=== PATIENT | female | born 1960 | race Caucasian/White ===

== ENCOUNTER → 2023-04-08 14:42 | Outpatient (CLI) | payer MEDICARE, MEDICAID, SELFPAY ==
--- NOTE | 2023-04-08 | DI.RAD.S_ITS ---
PROCEDURE: XR CHEST 2V INDICATIONS: Pneumonia, unspecified organism TECHNIQUE: 2 views of the chest were acquired. COMPARISON: [facility], , CHEST 2 VIEW, 05/24/2010, 15:30. FINDINGS: Surgical changes and devices: Right shoulder arthroplasty. Lungs and pleura: Lungs are clear. No pleural effusions or pneumothorax. Mediastinum: Mediastinal contours are normal. Heart size is normal. Bones and chest wall: No suspicious bony abnormalities. Soft tissues appear unremarkable. IMPRESSION: No acute cardiopulmonary disease process. Dictated by: Kandi Acosta MD, PhD on 04/08/2023 at 15:19 Approved by: Kandi Acosta MD, PhD on 04/08/2023 at 15:20
== END ==
PROVIDERS: Referring Provider Nurse Practitioner Family; Visit Provider Nurse Practitioner Family
DX: J18.9 Pneumonia, unspecified organism (principal)
CPT/HCPCS: 71046

== ENCOUNTER → 2023-04-15 14:50 | Outpatient (CLI) | payer MEDICARE, MEDICAID, SELFPAY ==
--- NOTE | 2023-04-15 | DI.RAD.S_ITS ---
PROCEDURE: XR LUMBAR SPINE 2-3V INDICATIONS: Radiculopathy, lumbar region, polyneuropathy TECHNIQUE: 3 views of the lumbar spine were acquired. COMPARISON: None. FINDINGS: Bones: 5 [id number] vertebrae are present. There is mild, approximately 4 millimeters of L4-L5 anterolisthesis secondary to facet hypertrophy. No vertebral body compression fractures. No suspicious bony lesions. Mild degenerative disc changes throughout the lumbar spine. Moderate L3-L4, L4-L5 and L5-S1 facet arthropathy. Mild L2-L3 and L1-L2 facet arthropathy. Soft tissues: Overlying bowel gas pattern is normal. No suspicious soft tissue calcifications. IMPRESSION: 1. Multilevel degenerative disc disease. 2. Multilevel facet arthropathy. 3. No fracture. No acute osseous lesion. If symptoms and/or clinical suspicion for pathology persists, evaluation with MRI should be considered for further assessment. Dictated by: Kandi Acosta MD, PhD on 04/15/2023 at 15:19 Approved by: Kandi Acosta MD, PhD on 04/15/2023 at 15:21
== END ==
PROVIDERS: Referring Provider Nurse Practitioner Family; Visit Provider Nurse Practitioner Family
DX: M51.16 Intervertebral disc disorders with radiculopathy, lumbar region (principal); M47.26 Other spondylosis with radiculopathy, lumbar region; M47.27 Other spondylosis with radiculopathy, lumbosacral region; G62.9 Polyneuropathy, unspecified
CPT/HCPCS: 72100

== ENCOUNTER → 2023-06-23 10:30 | Outpatient (CLI) | payer MEDICARE, MEDICAID, SELFPAY ==
--- NOTE | 2023-06-23 | DI.MRI.S_ITS ---
PROCEDURE: MR LUMBAR SPINE WO CON INDICATIONS: intervertebral disc degeneration, lumbar region TECHNIQUE: Noncontrast sagittal T1 spin echo and T2 fast echo, sagittal STIR, and T2 fast spin echo through the lumbar spine. In cases with scoliosis, additional coronal T2 fast spin echo may be performed. COMPARISON: [facility], CT, CHEST ABDOMEN WITH CONTRAST, 04/29/2008, 11:39. [facility], CR, XR LUMBAR SPINE 2-3V, 04/15/2023, 14:59. FINDINGS: Image quality: Excellent. Alignment and Curvature: There is minimal levoconvex lumbar scoliotic curvature. Accentuated lumbar lordosis is seen. Minimal retrolisthesis can be seen at T12-L1, L1-L2, and L2-L3. There is minimal L4-L5 anterolisthesis seen. Bone Marrow: Marrow is of normal overall signal. No acute vertebral body compression fractures. Spinal Cord: Conus medullaris terminates at the L1 level. Visualized cord demonstrates normal signal and size. Paraspinous Soft Tissues: No paravertebral masses. T12-L1: The disc height and disk signal are relatively well-preserved. Mild generalized disc bulge is seen. There is mild left-sided and minimal right-sided neural foraminal narrowing. Minimal central canal narrowing is seen. L1-L2: Normal appearance. L2-L3: The disc height and disk signal are relatively well-preserved. Mild to moderate disc bulge is seen, which is eccentric to the left. Mild to moderate facet hypertrophy is seen. There is [id number] left-sided and minimal right-sided neural foraminal narrowing. Minimal central canal narrowing is seen. L3-L4: The disc height and disk signal are relatively well-preserved. Mild generalized disc bulge is seen. There is at least moderate right-sided and moderate left-sided facet hypertrophy. There is moderate right-sided and mild left-sided neural foraminal narrowing. Mild central canal narrowing is seen. L4-L5: The disc height and disk signal are relatively well-preserved. Mild to moderate disc bulge is seen, which is eccentric to the right. Prominent facet hypertrophy is seen. Minimal to mild bilateral neural foraminal narrowing is seen. Minimal central canal narrowing is seen. L5-S1: The disc height and disk signal are well-preserved. Minimal disc bulge is seen. At least moderate facet hypertrophy can be seen. No significant neural foraminal or central canal narrowing can be seen. IMPRESSION: Multiple levels of lumbar spine degenerative change can be seen, which are overall worst at L3-L4 and L4-L5. Minimal levoconvex lumbar scoliotic curvature. Dictated by: Audi Briscoe M.D. on 06/23/2023 at 11:02 Approved by: Audi Briscoe M.D. on 06/23/2023 at 11:07
== END ==
PROVIDERS: Referring Provider Nurse Practitioner Family; Visit Provider Nurse Practitioner Family
DX: M51.36 Other intervertebral disc degeneration, lumbar region (principal); M47.816 Spondylosis without myelopathy or radiculopathy, lumbar region; M47.817 Spondylosis without myelopathy or radiculopathy, lumbosacral region
CPT/HCPCS: 72148

== ENCOUNTER → 2023-09-05 13:53 | Outpatient (CLI) | payer MEDICARE, MEDICAID, SELFPAY ==
--- NOTE | 2023-09-05 14:00 | DI.RAD.S_ITS ---
PROCEDURE: XR CHEST 2V INDICATIONS: pnemonia TECHNIQUE: 2 views of the chest were acquired. COMPARISON: [facility], CR, XR CHEST 2V, 04/08/2023, 14:56. FINDINGS: Surgical changes and devices: Right shoulder arthroplasty Lungs and pleura: Lungs are clear. No pleural effusions or pneumothorax. Mediastinum: Mediastinal contours are normal. Heart size is normal. Bones and chest wall: No suspicious bony abnormalities. Soft tissues appear unremarkable. IMPRESSION: No acute cardiopulmonary abnormality is seen. Dictated by: Dorian Marroquin M.D. on 09/05/2023 at 15:42 Approved by: Dorian Marroquin M.D. on 09/05/2023 at 15:43
[2023-09-05 15:37] LABS: Basophils Absolute Auto 100 /uL (0-100); Basophils Percent Auto 0.7 % (0-2); Eosinophils Absolute Auto 400 /uL (0-450); Eosinophils Percent Auto 2.2 % (2-4); Hematocrit 26.2 % (36-46); Hemoglobin 7.7 g/dL (12.0-16.0); Lymphocytes Absolute Auto 1900 /uL (1100-4500); Lymphocytes Percent Auto 11.5 % (25-40); Mean Corpuscular HGB Conc 29.2 % (30-36); Mean Corpuscular Hemoglobin 20.1 PG (26-34); Mean Corpuscular Volume 68.7 fL (80-100); Monocytes Absolute Auto 1800 /uL (0-900); Monocytes Percent Auto 10.5 % (3-14); Neutrophils Absolute Auto 12600 /uL (1500-7000); Neutrophils Percent Auto 75.1 % (50-75); Platelet Count 403 X10^3/uL (150-400); Red Blood Cell Count 3.81 X10^6/uL (4.0-5.2); Red Cell Distribution Width 19.5 % (11.6-14.8); White Blood Cell Count 16.8 X10^3/uL (4.5-11.0)
[2023-09-05 15:38] LABS: Add Manual Diff / Slide Review SLIDE REVIEW
[2023-09-05 16:07] LABS: BUN Creatinine Ratio 16.5 (6-22); Blood Urea Nitrogen 14 mg/dL (7-17); Calcium 9.3 mg/dL (8.4-10.2); Carbon Dioxide 24 mmol/L (22-32); Chloride 104 mmol/L (98-107); Estimated Glomerular Filt Rate > 60 mL/min (>60); Glucose 114 mg/dL (80-110); HEMOLYSIS < 15 (0-50); Potassium 4.4 mmol/L (3.4-5.1); Sodium 137 mmol/L (137-145)
[2023-09-05 16:20] LABS: Anisocytosis 1+; Microcytosis 2+
[2023-09-05 16:21] LABS: Hypochromasia 1+
[2023-09-05 16:22] LABS: Ovalocytes 1+; Poikilocytosis 1+
== END ==
PROVIDERS: PCP Internal Medicine; Referring Provider Internal Medicine; Visit Provider Internal Medicine
DX: I10 Essential (primary) hypertension (principal); J18.9 Pneumonia, unspecified organism
CPT/HCPCS: 36415; 71046; 80048; 85025

== ENCOUNTER → 2024-07-13 11:03 | Outpatient (CLI) | payer MEDICARE, MEDICAID, SELFPAY ==
--- NOTE | 2024-07-13 | DI.RAD.S_ITS ---
PROCEDURE: XR CHEST 2V INDICATIONS: acute cough TECHNIQUE: 2 views of the chest were acquired. COMPARISON: [facility], CR, XR CHEST 2V, 09/05/2023, 14:05. [facility], CR, XR CHEST 2V, 04/08/2023, 14:56. FINDINGS: Surgical changes and devices: Right humeral head prosthesis. Lungs and pleura: Prominent pulmonary markings. No consolidation is identified. No pleural effusions or pneumothorax. Mediastinum: Mediastinal contours are normal. Heart size is prominent. Bones and chest wall: No suspicious bony abnormalities. Soft tissues appear unremarkable. IMPRESSION: Prominent pulmonary markings. This could be artifactual due to overlying breast tissue, pulmonary vasculature engorgement, or atypical pneumonia. Dictated by: Baldo Gunderson M.D. on 07/13/2024 at 15:35 Approved by: Baldo Gunderson M.D. on 07/13/2024 at 15:37
== END ==
PROVIDERS: PCP Internal Medicine; Referring Provider Registered Nurse Critical Care Medicine; Visit Provider Registered Nurse Critical Care Medicine
DX: R05.1 Acute cough (principal)
CPT/HCPCS: 71046

== ENCOUNTER 2024-07-14 15:31 | Inpatient (IN) | payer MEDICARE, MEDICAID, SELFPAY ==
[2024-07-14] VITALS (10 sets, daily range): BP systolic 107–128; BP diastolic 54–63; PULSE 93–102; RESP 19–28; TEMP 36.8–37.2; O2SAT 85–99; BMI 35.8
--- NOTE | 2024-07-14 15:45 | DI.RAD.S_ITS ---
PROCEDURE: XR CHEST 1V INDICATIONS: Shortness of breath TECHNIQUE: One view of the chest was acquired. COMPARISON: [facility], CR, XR CHEST 2V, 07/13/2024, 11:09. [facility], CR, XR CHEST 2V, 09/05/2023, 14:05. FINDINGS: Surgical changes and devices: None. Lungs and pleura: Low lung volumes. No dense consolidation or pleural effusions. Possible basal atelectasis/scarring Mediastinum: Cardiomegaly. Unchanged cardiomediastinal contours. Bones and chest wall: Degenerative changes IMPRESSION: Low lung volumes. No acute radiographic abnormality on this limited single view study. Possible basal atelectasis/scarring. Dictated by: Brayden Chawla M.D. on 07/14/2024 at 17:00 Approved by: Brayden Chawla M.D. on 07/14/2024 at 17:01
--- NOTE | 2024-07-14 15:45 | EKG_ITS ---
[address] [address] Test Date: 2024-07-14 Pat Name: Rosmery Marie Department: Room: Gender: Female [employer] Helper: RADHA : 1960 Requested By: Order Number: [id number] Reading MD: Peewee Bartholomew MD Measurements Intervals [place] Rate: 97 P: 31 SD: 146 QRS: 11 QRSD: 76 T: 34 QT: 320 QTc: 406 Interpretive Statements Sinus rhythm with premature atrial complexes Low voltage QRS Electronically Signed On 07-15-2024 7:30:54 PST by Peewee Bartholomew MD
[2024-07-14 15:58] LABS: INR 1.2 (0.9-1.3)
[2024-07-14 16:00] LABS: Basophils Absolute Auto 0 /uL (0-100); Basophils Percent Auto 0.4 % (0-2); Eosinophils Absolute Auto 300 /uL (0-450); Eosinophils Percent Auto 2.6 % (2-4); Hematocrit 29.4 % (36-46); Hemoglobin 8.8 g/dL (12.0-16.0); Lymphocytes Absolute Auto 1900 /uL (1100-4500); Lymphocytes Percent Auto 15.2 % (25-40); Mean Corpuscular Hemoglobin 23.9 PG (26-34); Mean Corpuscular Volume 79.7 fL (80-100); Monocytes Absolute Auto 1700 /uL (0-900); Monocytes Percent Auto 13.5 % (3-14); Neutrophils Absolute Auto 8500 /uL (1500-7000); Neutrophils Percent Auto 68.3 % (50-75); Platelet Count 494 X10^3/uL (150-400); Red Blood Cell Count 3.69 X10^6/uL (4.0-5.2); Red Cell Distribution Width 32.1 % (11.6-14.8); White Blood Cell Count 12.4 X10^3/uL (4.5-11.0)
[2024-07-14 16:02] LABS: Alanine Aminotransferase 14 IU/L (<35); Albumin 3.5 g/dL (3.5-5.0); Albumin Globulin Ratio 1.3 (1.0-2.8); Alkaline Phosphatase 96 U/L (38-126); Aspartate Aminotransferase 44 IU/L (14-36); BUN Creatinine Ratio 16.4 (6-22); Bilirubin Total 0.3 mg/dL (0.2-1.3); Blood Urea Nitrogen 12 mg/dL (7-17); Calcium 8.6 mg/dL (8.4-10.2); Carbon Dioxide 27 mmol/L (22-32); Chloride 103 mmol/L (98-107); Estimated Glomerular Filt Rate > 60 mL/min (>60); Globulin 2.8 g/dL (1.7-4.1); Glucose 164 mg/dL (80-110); HEMOLYSIS 21 (0-50); Lactate (Lactic Acid) 1.1 mmol/L (0.7-2.1); Potassium 3.9 mmol/L (3.4-5.1); Sodium 136 mmol/L (137-145); Total Protein 6.3 g/dL (6.3-8.2)
--- NOTE | 2024-07-14 16:06 | ED.SOB ---
HPI - SOB/Dyspnea General Chief Complaint: Shortness of Breath/Dyspnea Stated Complaint: SOB/hypoxia Time Seen by Provider: 07/14/24 15:36 History of Present Illness HPI Narrative: Patient brought in by ambulance from detention for evaluation for pneumonia. Patient outpatient x-ray yesterday showed prominent pulmonary markings possible atypical pneumonia versus vasculature engorgement. Patient was prescribed antibiotics but they were not started. Raspy cough for 1 week. 84% room air by EMS. Improved with nasal cannula. Patient is awake alert oriented self and date of . She is DNR with selective treatments. DuoNeb treatment given by EMS and has helped patient. Related Data Home Medications Medication Instructions Recorded Confirmed ASPIRIN (#ASPIR-MIN) 325 mg PO Q DAY ##0 06/12/12 07/15/24 CALCIUM CARBONATE (OYSTER SHELL 500 mg PO BID ##0 06/12/12 07/14/24 CALCIUM~) CHOLECALCIFEROL (VITAMIN D) 2,000 iu PO Q DAY ##0 06/12/12 07/14/24 acetaminophen 500 mg tablet 1,000 mg PO Q6HP ##0 06/12/12 07/14/24 (Tylenol Extra Strength) amitriptyline 100 mg tablet 50 mg PO HS ##0 06/12/12 07/14/24 lansoprazole 30 mg capsule,delayed 60 mg PO QDAY ##0 06/12/12 07/14/24 release risperidone 1 mg tablet (Risperdal) 3 mg PO BEDTIME ##0 06/12/12 07/14/24 topiramate 100 mg tablet (Topamax) 100 mg PO Q DAY ##0 06/12/12 07/14/24 Lactobacillus acidophilus 1 tab PO DAILY 07/14/24 07/14/24 Wellbutrin SR 100 mg PO BID 07/14/24 07/14/24 atorvastatin 80 mg tablet 80 mg PO DAILY 07/14/24 07/14/24 bisacodyl 10 mg rectal suppository 10 mg MA PRN PRN Constipation 07/14/24 07/14/24 clopidogrel 75 mg tablet 75 mg PO DAILY 07/14/24 07/14/24 docusate calcium 240 mg capsule 240 mg PO PRN PRN contsipation 07/14/24 07/14/24 folic acid 1 mg tablet 1 mg PO DAILY 07/14/24 07/14/24 furosemide 20 mg tablet 20 mg PO DAILY 07/14/24 07/14/24 gabapentin 100 mg capsule 100 mg PO 3XD 07/14/24 07/14/24 ipratropium 0.5 mg-albuterol 3 mg 3 ml inhalation DAILY 07/14/24 07/14/24 (2.5 mg base)/3 mL nebulization soln lactulose 20 gram/30 mL oral 30 ml PO DAILY 07/14/24 07/14/24 solution pantoprazole 40 mg tablet,delayed 40 mg PO DAILY 07/14/24 07/14/24 release polyethylene glycol 3350 17 17 g PO PRN PRN Constipation 07/14/24 07/14/24 gram/dose oral powder (Miralax) Previous Rx's Medication Instructions Recorded ferrous sulfate 325 mg (65 mg 325 mg PO DAILY #30 tabs 07/19/24 iron) tablet guaifenesin 100 mg/5 mL oral liquid 200 mg (10 mL) PO Q6HR PRN Cough 07/19/24 #473 mL guaifenesin 600 mg tablet, 600 mg PO BID 7 days #14 tabs 07/19/24 extended release 12 hr (Mucus Relief ER) oxycodone-acetaminophen 10 mg-325 1 tab PO Q6H PRN pain 7 days #30 07/19/24 mg tablet tabs Allergies Allergy/AdvReac Type Severity Reaction Status Date / Time iodine [IODINE] Allergy Mild Verified 07/14/24 15:47 aspirin [ASPIRIN] Allergy Unknown Verified 07/14/24 15:47 ibuprofen [IBUPROFEN] Allergy Unknown Verified 07/14/24 15:47 Penicillins [PENICILLINS] Allergy Unknown Verified 07/14/24 15:47 Review of Systems Review of Systems Narrative: GENERAL: Negative chills, fatigue, malaise, fever, sweats. HEENT: Negative sinus pain, ear pain, sore throat RESPIRATORY: Positive dyspnea, cough CARDIOVASCULAR: Negative chest pain, palpitations GASTROINTESTINAL: Negative nausea, vomiting, abdominal pain : Negative dysuria, frequency, hematuria MUSCULOSKELETAL: Negative muscle or bony pain SKIN: Negative rash, skin lesions NEUROLOGIC: Negative weakness, numbness ROS Unobtainable: All systems reviewed & are unremarkable except as noted in HPI and below Patient History Social History household members: none Smoking Status: Never smoker alcohol intake: current Exam Narrative Exam Narrative: GENERAL: in no distress, not toxic not dyspneic HEAD: Normocephalic. EYES: Pupils equal round ENT: Mucous membranes moist. NECK: Trachea midline. CARDIOVASCULAR: Regular rate and rhythm RESPIRATORY: Patient is able to speak near full sentences. coarse lung sounds bilaterally with rhonchi and wheezing. GASTROINTESTINAL: Abdomen soft, non-tender EXTREMITIES: No gross deformities. BACK: No flank tenderness. NEURO: Patient is awake alert oriented x3. Clear speech SKIN: Warm and dry PSYCH: Not anxious, is cooperative Initial Vital Signs Initial Vital Signs: Vital Signs Pulse Rate 96 H 07/14/24 15:35 Pulse Oximetry 98 07/14/24 15:35 Oxygen Delivery Method Aerosol Mask 07/14/24 15:35 Course Orders Ordered: Discontinued Medications Acetaminophen (Acetaminophen 325 Mg Tablet) 650 mg PO Q6H PRN PRN Reason: Fever/Mild Pain (1-3) Last Admin: 07/14/24 20:07 Dose: 650 mg Documented By: Albuterol/Ipratropium (Albuterol/Ipratropium 3 Ml Ampul) 3 ml INH DAILY [facility] Last Admin: 07/19/24 09:09 Dose: Not Given Documented By: Admin: 07/18/24 09:16 Dose: Not Given Documented By: Admin: 07/17/24 09:46 Dose: 3 ml Documented By: Admin: 07/16/24 08:00 Dose: 3 ml Documented By: Admin: 07/15/24 12:23 Dose: Not Given Documented By: VERO Amitriptyline HCl (Amitriptyline 25 Mg Tablet) 50 mg PO BEDTIME [facility] Last Admin: 07/18/24 20:13 Dose: 50 mg Documented By: Admin: 07/17/24 20:09 Dose: 50 mg Documented By: Admin: 07/16/24 19:53 Dose: 50 mg Documented By: Admin: 07/15/24 20:14 Dose: 50 mg Documented By: Admin: 07/14/24 21:19 Dose: 50 mg Documented By: Atorvastatin Calcium (Atorvastatin 20 Mg Tablet) 80 mg PO DAILY [facility] Last Admin: 07/19/24 08:40 Dose: 80 mg Documented By: Admin: 07/18/24 08:25 Dose: 80 mg Documented By: Admin: 07/17/24 08:27 Dose: 80 mg Documented By: Admin: 07/16/24 08:00 Dose: 80 mg Documented By: Admin: 07/15/24 12:23 Dose: 80 mg Documented By: VERO Benzonatate (Benzonatate 100 Mg Capsule) 100 mg PO Q4H PRN PRN Reason: Cough Last Admin: 07/17/24 02:06 Dose: 100 mg Documented By: Admin: 07/16/24 19:54 Dose: 100 mg Documented By: Admin: 07/16/24 00:21 Dose: 100 mg Documented By: Admin: 07/15/24 17:48 Dose: 100 mg Documented By: Admin: 07/15/24 08:25 Dose: 100 mg Documented By: Admin: 07/15/24 04:12 Dose: 100 mg Documented By: Admin: 07/14/24 23:19 Dose: 100 mg Documented By: Bupropion HCl (Bupropion Sr 100 Mg Tab) 100 mg PO BID [facility] Admin: 07/19/24 08:40 Dose: 100 mg Documented By: Admin: 07/18/24 20:13 Dose: 100 mg Documented By: Admin: 07/18/24 08:23 Dose: 100 mg Documented By: Admin: 07/17/24 20:09 Dose: 100 mg Documented By: Admin: 07/17/24 08:26 Dose: 100 mg Documented By: Admin: 07/16/24 19:54 Dose: 100 mg Documented By: Admin: 07/16/24 08:01 Dose: 100 mg Documented By: Admin: 07/15/24 20:13 Dose: 100 mg Documented By: Admin: 07/15/24 08:25 Dose: 100 mg Documented By: Admin: 07/14/24 21:18 Dose: 100 mg Documented By: Calcium Carbonate (Calcium Carbonate 500 Mg Tab) 500 mg PO BID [facility] Admin: 07/19/24 08:40 Dose: 500 mg Documented By: Admin: 07/18/24 20:13 Dose: 500 mg Documented By: Admin: 07/18/24 08:24 Dose: 500 mg Documented By: Admin: 07/17/24 20:10 Dose: Not Given Documented By: Admin: 07/17/24 08:28 Dose: 500 mg Documented By: Admin: 07/16/24 21:35 Dose: Not Given Documented By: Admin: 07/16/24 08:18 Dose: Not Given Documented By: Admin: 07/15/24 20:13 Dose: 500 mg Documented By: VITALIY Clopidogrel Bisulfate (Clopidogrel 75 Mg Tablet) 75 mg PO DAILY [facility] Last Admin: 07/19/24 08:40 Dose: 75 mg Documented By: Admin: 07/18/24 08:23 Dose: 75 mg Documented By: Admin: 07/17/24 08:28 Dose: 75 mg Documented By: Admin: 07/16/24 08:01 Dose: 75 mg Documented By: Admin: 07/15/24 12:22 Dose: 75 mg Documented By: VERO Docusate Sodium (Docusate 100 Mg Capsule) 100 mg PO BID PRN PRN Reason: contsipation Doxycycline Hyclate (Doxycycline Hyclate 100 Mg Tablet) 100 mg PO BID [facility] Stop: 07/19/24 09:01 Last Admin: 07/19/24 08:39 Dose: 100 mg Documented By: Admin: 07/18/24 20:13 Dose: 100 mg Documented By: Admin: 07/18/24 08:24 Dose: 100 mg Documented By: Admin: 07/17/24 20:09 Dose: 100 mg Documented By: Admin: 07/17/24 08:28 Dose: 100 mg Documented By: LEONARDO Ferrous Sulfate (Ferrous Sulfate 325 Mg Tablet) 325 mg PO DAILY [facility] Last Admin: 07/19/24 08:40 Dose: 325 mg Documented By: Admin: 07/18/24 08:24 Dose: 325 mg Documented By: Admin: 07/17/24 08:28 Dose: 325 mg Documented By: LEONARDO Folic Acid (Folic Acid 1 Mg Tablet) 1 mg PO DAILY [facility] Last Admin: 07/19/24 08:39 Dose: 1 mg Documented By: Admin: 07/18/24 08:24 Dose: 1 mg Documented By: Admin: 07/17/24 08:28 Dose: 1 mg Documented By: Admin: 07/16/24 08:02 Dose: 1 mg Documented By: Admin: 07/15/24 12:23 Dose: 1 mg Documented By: VERO Furosemide (Furosemide 20 Mg Tablet) 20 mg PO DAILY [facility] Last Admin: 07/19/24 08:40 Dose: 20 mg Documented By: Admin: 07/18/24 08:24 Dose: 20 mg Documented By: Admin: 07/17/24 08:28 Dose: 20 mg Documented By: Admin: 07/16/24 08:02 Dose: 20 mg Documented By: Admin: 07/15/24 12:23 Dose: Not Given Documented By: VERO Gabapentin (Gabapentin 100 Mg Capsule) 100 mg PO TID [facility] Last Admin: 07/19/24 08:39 Dose: 100 mg Documented By: Admin: 07/18/24 20:14 Dose: 100 mg Documented By: Admin: 07/18/24 15:16 Dose: 100 mg Documented By: Admin: 07/18/24 08:24 Dose: 100 mg Documented By: Admin: 07/17/24 20:09 Dose: 100 mg Documented By: Admin: 07/17/24 14:57 Dose: 100 mg Documented By: Admin: 07/17/24 08:27 Dose: 100 mg Documented By: Admin: 07/16/24 19:55 Dose: 100 mg Documented By: Admin: 07/16/24 14:44 Dose: 100 mg Documented By: Admin: 07/16/24 08:01 Dose: 100 mg Documented By: Admin: 07/15/24 20:14 Dose: 100 mg Documented By: Admin: 07/15/24 14:09 Dose: 100 mg Documented By: Admin: 07/15/24 08:25 Dose: 100 mg Documented By: Admin: 07/14/24 21:19 Dose: 100 mg Documented By: MD Koehlerfenesin (Guaifenesin Er 600 Mg Tab) 600 mg PO BID [facility] Admin: 07/19/24 08:39 Dose: 600 mg Documented By: Admin: 07/18/24 20:13 Dose: 600 mg Documented By: Admin: 07/18/24 08:23 Dose: 600 mg Documented By: Admin: 07/17/24 20:09 Dose: 600 mg Documented By: Admin: 07/17/24 08:27 Dose: 600 mg Documented By: Admin: 07/16/24 19:54 Dose: 600 mg Documented By: Admin: 07/16/24 08:01 Dose: 600 mg Documented By: Admin: 07/15/24 20:14 Dose: 600 mg Documented By: Admin: 07/15/24 08:25 Dose: 600 mg Documented By: Admin: 07/14/24 23:19 Dose: 600 mg Documented By: Guaifenesin (Guaifenesin Solution 100 Mg/5 Ml Udc) 200 mg PO Q6HR PRN PRN Reason: Cough Last Admin: 07/19/24 01:40 Dose: 200 mg Documented By: Admin: 07/18/24 17:41 Dose: 200 mg Documented By: Admin: 07/18/24 10:42 Dose: 200 mg Documented By: Admin: 07/18/24 04:08 Dose: 200 mg Documented By: Admin: 07/17/24 20:08 Dose: 200 mg Documented By: Admin: 07/17/24 14:57 Dose: 200 mg Documented By: Admin: 07/17/24 06:16 Dose: 200 mg Documented By: VITALIY Heparin Sodium (Porcine) (Heparin 5,000 Unit/Ml Vial) 5,000 unit SUBCUT BID [facility] Last Admin: 07/19/24 08:40 Dose: 5,000 unit Documented By: Admin: 07/18/24 20:13 Dose: 5,000 unit Documented By: Admin: 07/18/24 08:24 Dose: 5,000 unit Documented By: Admin: 07/17/24 20:09 Dose: 5,000 unit Documented By: Admin: 07/17/24 08:27 Dose: 5,000 unit Documented By: Admin: 07/16/24 19:54 Dose: 5,000 unit Documented By: Admin: 07/16/24 08:01 Dose: 5,000 unit Documented By: Admin: 07/15/24 20:13 Dose: 5,000 unit Documented By: Admin: 07/15/24 08:25 Dose: 5,000 unit Documented By: Admin: 07/14/24 20:06 Dose: 5,000 unit Documented By: Doxycycline Hyclate 100 mg/ (Sodium Chloride) 100 mls @ 100 mls/hr IV NOW ONE Stop: 07/14/24 15:47 Last Admin: 07/14/24 15:50 Dose: Not Given Documented By: MARIE Ceftriaxone Sodium 2,000 mg/ (Sodium Chloride) 100 mls @ 200 mls/hr IV NOW ONE Stop: 07/14/24 15:47 Last Admin: 07/14/24 15:50 Dose: Not Given Documented By: CTS Levofloxacin (Levaquin) 750 mg in 150 mls @ 100 mls/hr IV NOW ONE Stop: 07/14/24 17:18 Last Infusion: 07/14/24 17:26 Dose: 100 mls/hr Documented By: Admin: 07/14/24 16:24 Dose: 100 mls/hr Documented By: KLAUS Sodium Chloride (Normal Saline 0.45%) 1,000 mls @ 100 mls/hr IV CONT [facility] Last Admin: 07/15/24 04:37 Dose: 100 mls/hr Documented By: Infusion: 07/15/24 04:00 Dose: Infused Documented By: Admin: 07/14/24 18:00 Dose: 100 mls/hr Documented By: ELOISE Doxycycline Hyclate 100 mg/ (Sodium Chloride) 100 mls @ 100 mls/hr IV Q12H [facility] Last Admin: 07/16/24 16:41 Dose: 100 mls/hr Documented By: Infusion: 07/16/24 05:30 Dose: Infused Documented By: Admin: 07/16/24 04:27 Dose: 100 mls/hr Documented By: Infusion: 07/15/24 16:55 Dose: Infused Documented By: Admin: 07/15/24 15:52 Dose: 100 mls/hr Documented By: Infusion: 07/15/24 06:20 Dose: Infused Documented By: Admin: 07/15/24 05:19 Dose: 100 mls/hr Documented By: Infusion: 07/14/24 19:05 Dose: Infused Documented By: Admin: 07/14/24 18:04 Dose: 100 mls/hr Documented By: ELOISE Levofloxacin (Levaquin) 750 mg in 150 mls @ 100 mls/hr IV Q24H [facility] Last Infusion: 07/16/24 16:35 Dose: Infused Documented By: Admin: 07/16/24 14:44 Dose: 100 mls/hr Documented By: Infusion: 07/15/24 15:40 Dose: Infused Documented By: Admin: 07/15/24 14:09 Dose: 100 mls/hr Documented By: VERO Lactobacillus Acidophilus (Lactobacillus Acidophilus Tablet) 1 each PO DAILY [facility] Last Admin: 07/19/24 08:39 Dose: 1 each Documented By: Admin: 07/18/24 08:24 Dose: 1 each Documented By: Admin: 07/17/24 08:27 Dose: 1 each Documented By: Admin: 07/16/24 08:08 Dose: 1 each Documented By: FELIPE Lactulose (Lactulose 20 Gm/30 Ml Solution) 20 gm PO DAILY [facility] Last Admin: 07/19/24 08:41 Dose: 20 gm Documented By: Admin: 07/18/24 08:24 Dose: 20 gm Documented By: Admin: 07/17/24 08:28 Dose: 20 gm Documented By: Admin: 07/16/24 08:08 Dose: 20 gm Documented By: FELIPE Levofloxacin (Levofloxacin 250 Mg Tablet) 750 mg PO DAILY@1500 [facility] Stop: 07/18/24 15:01 Last Admin: 07/18/24 15:16 Dose: 750 mg Documented By: Admin: 07/17/24 14:57 Dose: 750 mg Documented By: LEONARDO Naloxone HCl (Naloxone 0.4 Mg/Ml Vial) 0.2 mg IV Q2MIN PRN PRN Reason: Opiate Reversal Non-Formulary Medication (Oxycodone-Acetaminophen) 1 tab PO PRN PRN PRN Reason: Pain (Scale Score 4-6) Ondansetron HCl (Ondansetron 4 Mg/2 Ml Inj) 4 mg IV Q8HR PRN PRN Reason: Nausea And Vomiting Oxycodone HCl (Oxycodone Ir 10 Mg Tablet) 10 mg PO Q6HR PRN PRN Reason: Pain, Severe (7-10) Last Admin: 07/19/24 08:45 Dose: 10 mg Documented By: Admin: 07/18/24 20:53 Dose: 10 mg Documented By: Admin: 07/18/24 15:23 Dose: 10 mg Documented By: Admin: 07/18/24 08:38 Dose: 10 mg Documented By: Admin: 07/17/24 20:09 Dose: 10 mg Documented By: Admin: 07/17/24 13:45 Dose: 10 mg Documented By: Admin: 07/16/24 19:53 Dose: 10 mg Documented By: Admin: 07/15/24 20:15 Dose: 10 mg Documented By: Admin: 07/15/24 13:47 Dose: 10 mg Documented By: Admin: 07/15/24 10:23 Dose: 10 mg Documented By: Admin: 07/15/24 04:12 Dose: 10 mg Documented By: Oxycodone/Acetaminophen (Oxycodone/Acetaminophen 5/325 Tablet) 1 tab PO Q6HR PRN PRN Reason: Pain, Moderate (4-6) Last Admin: 07/14/24 23:19 Dose: 1 tab Documented By: Pantoprazole Sodium (Pantoprazole Dr 40 Mg Tablet) 40 mg PO DAILY [facility] Last Admin: 07/19/24 08:40 Dose: 40 mg Documented By: Admin: 07/18/24 08:24 Dose: 40 mg Documented By: Admin: 07/17/24 08:26 Dose: 40 mg Documented By: Admin: 07/16/24 08:01 Dose: 40 mg Documented By: Admin: 07/15/24 12:22 Dose: 40 mg Documented By: VERO Potassium Chloride (Potassium Chloride 20 Meq Tab) 40 meq PO NOW ONE Stop: 07/18/24 08:01 Last Admin: 07/18/24 08:24 Dose: 40 meq Documented By: VALORIE Risperidone (Risperidone 1 Mg Tablet) 3 mg PO BEDTIME [facility] Last Admin: 07/18/24 20:13 Dose: 3 mg Documented By: Admin: 07/17/24 20:09 Dose: 3 mg Documented By: Admin: 07/16/24 19:53 Dose: 3 mg Documented By: Admin: 07/15/24 20:14 Dose: 3 mg Documented By: Admin: 07/14/24 21:19 Dose: 3 mg Documented By: Topiramate (Topiramate 100 Mg Tablet) 100 mg PO DAILY [facility] Last Admin: 07/19/24 08:40 Dose: 100 mg Documented By: Admin: 07/18/24 08:24 Dose: 100 mg Documented By: Admin: 07/17/24 08:28 Dose: 100 mg Documented By: Admin: 07/16/24 08:08 Dose: 100 mg Documented By: FELIPE Vitamin D (Cholecalciferol (Vitamin D3) 1,000 Unit Tablet) 2,000 unit PO DAILY [facility] Last Admin: 07/19/24 08:39 Dose: 2,000 unit Documented By: Admin: 07/18/24 08:23 Dose: 2,000 unit Documented By: Admin: 07/17/24 08:26 Dose: 2,000 unit Documented By: Admin: 07/16/24 08:08 Dose: 2,000 unit Documented By: FELIPE Vital Signs Vital signs: Vital Signs - 8 hr 07/14/24 15:35 07/14/24 15:36 07/14/24 15:36 Temperature Pulse Rate 96 H 98 H Respiratory Rate Blood Pressure 123/63 Pulse Oximetry 98 97 Oxygen Delivery Method Aerosol Mask Aerosol Mask Oxygen Flow Rate 07/14/24 15:40 07/14/24 15:40 07/14/24 15:40 Temperature 98.3 F Pulse Rate 93 H 95 H Respiratory Rate 28 H 20 Blood Pressure 123/63 127/61 Pulse Oximetry 98 98 Oxygen Delivery Method Room Air Aerosol Mask Oxygen Flow Rate 07/14/24 16:00 07/14/24 16:05 07/14/24 16:06 Temperature Pulse Rate 96 H 97 H Respiratory Rate 23 22 Blood Pressure 123/58 L Pulse Oximetry 85 L 93 Oxygen Delivery Method Room Air Nasal Cannula Oxygen Flow Rate 3 MDM - SOB/Dyspnea Lab Data 07/19/24 05:02 07/18/24 05:47 Labs: Lab Results 07/14/24 07/14/24 Range/Units 15:35 15:41 WBC 12.4 H (4.5-11.0) X10^3/uL RBC 3.69 L (4.0-5.2) X10^6/uL Hgb 8.8 L (12.0-16.0) g/dL Hct 29.4 L (36-46) % MCV 79.7 L (80-100) fL MCH 23.9 L (26-34) PG MCHC 30.0 (30-36) % RDW 32.1 H (11.6-14.8) % Plt Count 494 H (150-400) X10^3/uL Neut % (Auto) 68.3 (50-75) % Lymph % (Auto) 15.2 L (25-40) % [place] % (Auto) 13.5 (3-14) % Eos % (Auto) 2.6 (2-4) % Baso % (Auto) 0.4 (0-2) % Neut # (Auto) 8500 H (4855-7330) /uL Lymph # (Auto) 1900 (0347-7672) /uL [place] # (Auto) 1700 H (0-900) /uL Eos # (Auto) 300 (0-450) /uL Baso # (Auto) 0 (0-100) /uL Smudge Cells 1+ H RBC Morphology See below Hypochromasia 1+ H Anisocytosis 2+ H Microcytosis 1+ H Macrocytosis 1+ H Ovalocytes 1+ H Rouleaux 1+ H PT 14.0 H (9.4-12.5) SECONDS INR 1.2 (0.9-1.3) Sodium 136 L (137-145) mmol/L Potassium 3.9 (3.4-5.1) mmol/L Chloride 103 (98-107) mmol/L Carbon Dioxide 27 (22-32) mmol/L BUN 12 (7-17) mg/dL Creatinine 0.73 (0.52-1.04) mg/dL Estimated GFR > 60 (>60) mL/min BUN/Creatinine Ratio 16.4 (6-22) Glucose 164 H (80-110) mg/dL Lactate 1.1 (0.7-2.1) mmol/L Calcium 8.6 (8.4-10.2) mg/dL Total Bilirubin 0.3 (0.2-1.3) mg/dL AST 44 H (14-36) IU/L ALT 14 (<35) IU/L Alkaline Phosphatase 96 (38-126) U/L Troponin I 0.040 H (0.01-0.034) ng/mL NT-Pro-B Natriuret Pep 76 (<125) pg/mL Total Protein 6.3 (6.3-8.2) g/dL Albumin 3.5 (3.5-5.0) g/dL Globulin 2.8 (1.7-4.1) g/dL Albumin/Globulin Ratio 1.3 (1.0-2.8) Chlamy pneumoniae PCR Not detected (Not Detect) Adenovirus (PCR) Not detected (Not Detect) B. pertussis DNA (PCR) Not detected (Not Detect) B.parapertussis DNA PCR Not detected (Not Detecte) Coronavirus OC43 (PCR) Not detected (Not Detect) Coronavirus HKU1 (PCR) Not detected (Not Detect) Coronavirus 229E (PCR) Not detected (Not Detect) SARS-CoV-2 (PCR) Not detected (Not Detecte) Coronavirus NL63 (PCR) Not detected (Not Detect) Human Metapneumovir PCR Not detected (Not Detect) Influenza Type A (PCR) Not detected (Not Detect) Influenza Type B (PCR) Not detected (Not Detect) M. pneumoniae (PCR) Not detected (Not Detect) Parainfluenza 1 (PCR) Not detected (Not Detect) Parainfluenza 2 (PCR) Not detected (Not Detect) Parainfluenza 3 (PCR) Not detected (Not Detect) Parainfluenza 4 (PCR) Detected H (Not Detect) RSV (PCR) Not detected (Not Detect) Entero/Rhino (PCR) Detected H (Not Detect) Imaging Data Chest x-ray: Radiologist's Impression: [address] [address] XRay Report Signed Patient: Rosmery Marie MR#: [id number] : 1960 Acct:[id number] Age/Sex: 64 / F Date of Service: 07/13/24 Loc: [facility] Accession Number: [id number] Procedure: XR chest 2V Ordering Provider: Cookie Tamayo PROCEDURE: XR CHEST 2V INDICATIONS: acute cough TECHNIQUE: 2 views of the chest were acquired. COMPARISON: [facility], , XR CHEST 2V, 09/05/2023, 14:05. [facility], CR, XR CHEST 2V, 04/08/2023, 14:56. FINDINGS: Surgical changes and devices: Right humeral head prosthesis. Lungs and pleura: Prominent pulmonary markings. No consolidation is identified. No pleural effusions or pneumothorax. Mediastinum: Mediastinal contours are normal. Heart size is prominent. Bones and chest wall: No suspicious bony abnormalities. Soft tissues appear unremarkable. IMPRESSION: Prominent pulmonary markings. This could be artifactual due to overlying breast tissue, pulmonary vasculature engorgement, or atypical pneumonia. Dictated by: Baldo Gunderson M.D. on 07/13/2024 at 15:35 Approved by: Baldo Gunderson M.D. on 07/13/2024 at 15:37 [facility] Narrative Medical decision making narrative: Patient brought in by ambulance from detention for evaluation for pneumonia. Patient outpatient x-ray yesterday showed prominent pulmonary markings possible atypical pneumonia versus vasculature engorgement. Patient was prescribed antibiotics but they were not started. Raspy cough for 1 week. 84% room air by EMS. Improved with nasal cannula. Patient is awake alert oriented self and date of . She is DNR with selective treatments. DuoNeb treatment given by EMS and has helped patient. After history and exam CBC CMP lactic acid procalcitonin blood culture chest x-ray Levaquin, respiratory panel, likely admit, EKG [facility] Medical records reviewed: No recent visit for this complaint Differential considered: Includes but not limited to pneumonia CHF bronchitis sepsis COPD exacerbation Lab Test results independently reviewed as above. Pertinent findings: WBC 12.4 hemoglobin 8.8 sodium 136 potassium 3.9 BUN 12 creatinine 0.73 Independently reviewed EKG sinus rhythm rate [address] elevation or depression Imaging studies independently reviewed: Chest x-ray atypical pneumonia versus vasculature engorgement Consultations: 4:[address] Chacko, hospitalist, who will admit. Treatments: Levaquin Re-evaluations: Reviewed results the patient agrees for admit Discussion: Appropriate for admission, patient requiring supplemental oxygen. Needing IV antibiotics. Diagnosis: Community acquired pneumonia Discharge Plan Departure Patient Disposition: Admitted As Inpatient Clinical Impression: Community acquired pneumonia Qualifiers: Laterality: unspecified laterality Qualified Code(s): J18.9 - Pneumonia, unspecified organism Admit Date/Time: 07/14/24 16:34 Admit Provider: Iban Chacko
[2024-07-14 16:07] LABS: Add Manual Diff / Slide Review SLIDE REVIEW
[2024-07-14 16:14] LABS: NT-proBNP (BNP-Adult 18+) 76 pg/mL (<125)
[2024-07-14] MEDS: levoFLOXacin 750 MG/150 ML PIGGYBACK 100 MG IV (16:24)
--- NOTE | 2024-07-14 16:25 | PM.HP.1 ---
History of Present Illness History of Present Illness Date Patient Seen: 07/14/24 Chief complaint: SOB/hypoxia Narrative: From ED provider: Patient brought in by ambulance from skilled nursing for evaluation for pneumonia. Patient outpatient x-ray yesterday showed prominent pulmonary markings possible atypical pneumonia versus vasculature engorgement. Patient was prescribed antibiotics but they were not started. Raspy cough for 1 week. 84% room air by EMS. Improved with nasal cannula. Patient is awake alert oriented self and date of . She is DNR with selective treatments. DuoNeb treatment given by EMS and has helped patient. Given levofloxacin in the emergency department. Additional information: She has been ill for several days with a lot of chest congestion, productive cough, and dyspnea. She was had some wheezing in her lungs as well. She was also had some diarrhea. She notes that several people in the facility have been ill. Her respiratory PCR was positive for parainfluenza and enterovirus. She was given antibiotics in the emergency department. Meds Home Medications and Allergies Home Medications Medication Instructions Recorded Confirmed Type ASPIRIN (#ASPIR-MIN) 325 mg PO Q DAY ##0 06/12/12 History CALCIUM CARBONATE (OYSTER SHELL 500 mg PO BID ##0 06/12/12 History CALCIUM~) CHOLECALCIFEROL (VITAMIN D) 2,000 iu PO Q DAY ##0 06/12/12 History acetaminophen 500 mg tablet 1,000 mg PO Q6HP ##0 06/12/12 History (Tylenol Extra Strength) amitriptyline 100 mg tablet 100 mg PO HS ##0 06/12/12 History bupropion HCl 150 mg tablet,12 hr 150 mg PO BID ##0 06/12/12 History sustained-release (Wellbutrin SR) estradiol-norethindrone acet 1 1 tab PO QDAY #28 tabs 06/12/12 History mg-0.5 mg tablet (Activella) hydroxyzine HCl 25 mg tablet 250 mg PO BID ##0 06/12/12 History lansoprazole 30 mg capsule,delayed 60 mg PO QDAY ##0 06/12/12 History release methadone 10 mg tablet 10 mg PO HS ##0 06/12/12 History risperidone 1 mg tablet (Risperdal) 1 mg PO Q DAY ##0 06/12/12 History simvastatin 5 mg tablet (Zocor) 5 mg PO HS ##0 06/12/12 History topiramate 100 mg tablet (Topamax) 100 mg PO Q DAY ##0 06/12/12 History Allergies Allergy/AdvReac Type Severity Reaction Status Date / Time iodine [IODINE] Allergy Mild Verified 07/14/24 15:47 aspirin [ASPIRIN] Allergy Unknown Verified 07/14/24 15:47 ibuprofen [IBUPROFEN] Allergy Unknown Verified 07/14/24 15:47 Penicillins [PENICILLINS] Allergy Unknown Verified 07/14/24 15:47 Review of Systems Review of Systems Narrative: All else reviewed and otherwise unremarkable except as noted in the history and physical. Exam Vital Signs (past 8 hours): - 07/14/24 15:35 07/14/24 15:36 07/14/24 15:36 Temperature Pulse Rate 96 H 98 H Respiratory Rate Blood Pressure 123/63 Pulse Oximetry 98 97 Oxygen Delivery Method Aerosol Mask Aerosol Mask Oxygen Flow Rate 07/14/24 15:40 07/14/24 15:40 07/14/24 15:40 Temperature 98.3 F Pulse Rate 93 H 95 H Respiratory Rate 28 H 20 Blood Pressure 123/63 127/61 Pulse Oximetry 98 98 Oxygen Delivery Method Room Air Aerosol Mask Oxygen Flow Rate 07/14/24 16:00 07/14/24 16:05 07/14/24 16:06 Temperature Pulse Rate 96 H 97 H Respiratory Rate 23 22 Blood Pressure 123/58 L Pulse Oximetry 85 L 93 Oxygen Delivery Method Room Air Nasal Cannula Oxygen Flow Rate 3 Oxygen Delivery Method Nasal Cannula Oxygen Flow Rate 3 Narrative Exam Narrative: NAD, alert and oriented, fluent speech, calm. Normocephalic skull, EOMI, anicteric sclera, symmetric pupils. Oropharynx unremarkable, no droop. Neck supple, midline trachea, no adenopathy. Lungs are rhonchorous and wheezy, normal rate and effort. Heart regular, no murmur gallop or rub. Abdomen is soft, non distended and non tender. Extremities are free of edema. Skin is free of rash or lesions. Joints are not swollen or deformed. Judgment appears to be normal. Objective ECG Impression: Sinus rhythm with premature atrial complexes Low voltage QRS Imaging Chest x-ray: Radiologist's impression: Prominent pulmonary markings. This could be artifactual due to overlying breast tissue, pulmonary vasculature engorgement, or atypical pneumonia. Labs 07/14/24 15:35 07/14/24 15:35 Labs: Laboratory Results - last 24 hr 07/14/24 15:35 WBC 12.4 H RBC 3.69 L Hgb 8.8 L Hct 29.4 L MCV 79.7 L MCH 23.9 L MCHC 30.0 RDW 32.1 H Plt Count 494 H Neut % (Auto) 68.3 Lymph % (Auto) 15.2 L [place] % (Auto) 13.5 Eos % (Auto) 2.6 Baso % (Auto) 0.4 Neut # (Auto) 8500 H Lymph # (Auto) 1900 [place] # (Auto) 1700 H Eos # (Auto) 300 Baso # (Auto) 0 Sodium 136 L Potassium 3.9 Chloride 103 Carbon Dioxide 27 BUN 12 Creatinine 0.73 Estimated GFR > 60 BUN/Creatinine Ratio 16.4 Glucose 164 H Lactate 1.1 Calcium 8.6 Total Bilirubin 0.3 AST 44 H ALT 14 Alkaline Phosphatase 96 Troponin I 0.040 H NT-Pro-B Natriuret Pep 76 Total Protein 6.3 Albumin 3.5 Globulin 2.8 Albumin/Globulin Ratio 1.3 Assessment & Plan Assessment & Plan narrative: 1. Atypical pneumonia, present on admission and active. 2. Acute hypoxic respiratory failure, present on admission and active. 3. Demand ischemia, present on admission and active. 4. Respiratory PCR positive for parainfluenza virus and enterovirus, present on admission and active. Plan: -empiric antibiotics for pneumonia, ceftriaxone and doxycycline. -wean O2 as able. -2D echo to assess LV function -trend troponins. DNR/DNI Selective treatments. Anticipate 1 midnight hospital stay, observation status supported. SARAHI is July 15. Time-Based Coding :: 35 min spent with patient and on the chart (including review of chart, obtaining history, exam, reviewing outside data, placing orders, documenting exam and treatment plan, and counseling patient) on 07/14. Quality MIPS - Admit I confirm the patient?s Advance Care Plan is present, Code status is documented, Surrogate decision maker is in patient?s record [If Yes, STOP here]: Yes MIPS - Meds 'Current medications' to include all prescriptions, [id number] products, herbals, cannabis/cannabidiol products, and vitamin/mineral/dietary (nutritional) supplements. I have utilized all available resources to obtain, update, or review the patient?s current medications. [If Yes, STOP here]: Yes
[2024-07-14 16:26] LABS: Anisocytosis 2+; Hypochromasia 1+; Macrocytosis 1+; Microcytosis 1+; Ovalocytes 1+; Rouleaux 1+; Smudge Cells 1+
[2024-07-14 17:03] LABS: Adenovirus Not Detected (Not Detect); B. parapertussis Not Detected (Not Detecte); Bordetella pertussis Not Detected (Not Detect); Chlamydophila pneumoniae Not Detected (Not Detect); Coronavirus 229E Not Detected (Not Detect); Coronavirus HKU1 Not Detected (Not Detect); Coronavirus NL 63 Not Detected (Not Detect); Coronavirus OC43 Not Detected (Not Detect); Human Metapneumovirus Not Detected (Not Detect); Human Rhinovirus/Enterovirus Detected (Not Detect); Influenza A Not Detected (Not Detect); Influenza B Not Detected (Not Detect); Mycoplasma pneumoniae Not Detected (Not Detect); Parainfluenza Virus 1 Not Detected (Not Detect); Parainfluenza Virus 2 Not Detected (Not Detect); Parainfluenza Virus 3 Not Detected (Not Detect); Parainfluenza Virus 4 Detected (Not Detect); Respiratory Syncytial Virus Not Detected (Not Detect); SARS- CoV-2 Not Detected (Not Detecte)
[2024-07-14] MEDS: SODIUM CHLORIDE 0.45% 1,000 ML 100 ML IV (18:00)
[2024-07-14] MEDS: DOXYCYCLINE 100 MG in SODIUM CHLORIDE 0.9% 100 ML IV (18:04)
[2024-07-14] MEDS: HEPARIN 5,000 UNIT/ML VIAL 5000 UNIT SUBCUT (20:06)
[2024-07-14] MEDS: ACETAMINOPHEN 325 MG TABLET 650 MG PO (20:07)
[2024-07-14] MEDS: buPROPion SR 100 MG TAB PO (21:18)
[2024-07-14] MEDS: risperiDONE 1 MG TABLET 3 MG PO (21:19)
[2024-07-14] MEDS: AMITRIPTYLINE 25 MG TABLET 50 MG PO (21:19)
[2024-07-14] MEDS: GABAPENTIN 100 MG CAPSULE PO (21:19)
[2024-07-14] MEDS: BENZONATATE 100 MG CAPSULE PO (23:19)
[2024-07-14] MEDS: OXYCODONE/ACETAMINOPHEN 5/325 TABLET 1 TAB PO (23:19)
[2024-07-14] MEDS: guaiFENesin ER 600 MG TAB PO (23:19)
[2024-07-15] VITALS (7 sets, daily range): BP systolic 103–119; BP diastolic 54–68; PULSE 88–105; RESP 14–20; TEMP 36.4–37.1; O2SAT 86–96
[2024-07-15] MEDS: BENZONATATE 100 MG CAPSULE PO ×3 (04:12→17:48)
[2024-07-15] MEDS: OXYCODONE IR 10 MG TABLET PO ×4 (04:12→20:15)
[2024-07-15] MEDS: SODIUM CHLORIDE 0.45% 1,000 ML 100 ML IV (04:37)
[2024-07-15] MEDS: DOXYCYCLINE 100 MG in SODIUM CHLORIDE 0.9% 100 ML IV ×2 (05:19→15:52)
[2024-07-15 06:54] LABS: Add Manual Diff / Slide Review NO; Basophils Absolute Auto 100 /uL (0-100); Basophils Percent Auto 0.5 % (0-2); Eosinophils Absolute Auto 400 /uL (0-450); Eosinophils Percent Auto 3.9 % (2-4); Hematocrit 26.7 % (36-46); Hemoglobin 8.2 g/dL (12.0-16.0); Lymphocytes Absolute Auto 1500 /uL (1100-4500); Lymphocytes Percent Auto 14.6 % (25-40); Mean Corpuscular HGB Conc 30.8 % (30-36); Mean Corpuscular Hemoglobin 24.5 PG (26-34); Mean Corpuscular Volume 79.6 fL (80-100); Monocytes Absolute Auto 1300 /uL (0-900); Monocytes Percent Auto 12.5 % (3-14); Neutrophils Absolute Auto 7100 /uL (1500-7000); Neutrophils Percent Auto 68.5 % (50-75); Platelet Count 426 X10^3/uL (150-400); Red Blood Cell Count 3.36 X10^6/uL (4.0-5.2); Red Cell Distribution Width 31.3 % (11.6-14.8); White Blood Cell Count 10.3 X10^3/uL (4.5-11.0)
[2024-07-15 07:02] LABS: BUN Creatinine Ratio 17.1 (6-22); Blood Urea Nitrogen 12 mg/dL (7-17); Calcium 8.1 mg/dL (8.4-10.2); Carbon Dioxide 28 mmol/L (22-32); Chloride 102 mmol/L (98-107); Estimated Glomerular Filt Rate > 60 mL/min (>60); Glucose 158 mg/dL (80-110); HEMOLYSIS < 15 (0-50); Potassium 3.7 mmol/L (3.4-5.1); Sodium 134 mmol/L (137-145)
[2024-07-15 07:14] LABS: Anisocytosis 2+; Poikilocytosis 1+
--- NOTE | 2024-07-15 08:06 | PM.PN.1 ---
Subjective Subjective Interval history: Summary: Patient was admitted from long-term care with a cough. Her PCR was positive for parainfluenza virus and enterovirus. She was also anemic. She does meet criteria for inpatient care and appears to require a 2nd midnight in the hospital for ongoing treatment of pneumonia and evaluation and monitoring of anemia. S: She was doing better today, still persistent cough. She was having some chest pain with her cough. Her strength is improving. She was spends most of her time in bed but does transfer by walker to the bathroom several times a day. She is a long-term care patient at [facility]. Exam Vital Signs (past 8 hours): - 07/15/24 04:41 Temperature 97.9 F Pulse Rate 95 H Respiratory Rate 20 Blood Pressure 116/56 L Pulse Oximetry 96 Oxygen Flow Rate 3 Oxygen Delivery Method Nasal Cannula Oxygen Flow Rate 3 Narrative Exam Narrative: NAD, alert and oriented. Fluent speech. Lungs are Improved today but still with scattered rhonchi, normal rate and effort. Heart is regular, no murmur gallop or rub. Abdomen is soft, non distended. Extremities are free of edema. Objective Imaging Chest x-ray: My impression: X-ray looks essentially clear to my read, there is some blunting of the left costophrenic angle. Radiologist's impression: Low lung volumes. No acute radiographic abnormality on this limited single view study. Possible basal atelectasis/scarring. Labs 07/15/24 06:10 07/15/24 06:10 Labs: Laboratory Results - last 24 hr 07/14/24 07/14/24 07/15/24 15:35 15:41 06:10 WBC 12.4 H 10.3 RBC 3.69 L 3.36 L Hgb 8.8 L 8.2 L Hct 29.4 L 26.7 L MCV 79.7 L 79.6 L MCH 23.9 L 24.5 L MCHC 30.0 30.8 RDW 32.1 H 31.3 H Plt Count 494 H 426 H Neut % (Auto) 68.3 68.5 Lymph % (Auto) 15.2 L 14.6 L [place] % (Auto) 13.5 12.5 Eos % (Auto) 2.6 3.9 Baso % (Auto) 0.4 0.5 Neut # (Auto) 8500 H 7100 H Lymph # (Auto) 1900 1500 [place] # (Auto) 1700 H 1300 H Eos # (Auto) 300 400 Baso # (Auto) 0 100 Smudge Cells 1+ H RBC Morphology See below Not Reportable Hypochromasia 1+ H Poikilocytosis 1+ H Anisocytosis 2+ H 2+ H Microcytosis 1+ H Macrocytosis 1+ H Ovalocytes 1+ H Rouleaux 1+ H PT 14.0 H INR 1.2 Sodium 136 L 134 L Potassium 3.9 3.7 Chloride 103 102 Carbon Dioxide 27 28 BUN 12 12 Creatinine 0.73 0.70 Estimated GFR > 60 > 60 BUN/Creatinine Ratio 16.4 17.1 Glucose 164 H 158 H Lactate 1.1 Calcium 8.6 8.1 L Total Bilirubin 0.3 AST 44 H ALT 14 Alkaline Phosphatase 96 Troponin I 0.040 H NT-Pro-B Natriuret Pep 76 Total Protein 6.3 Albumin 3.5 Globulin 2.8 Albumin/Globulin Ratio 1.3 Chlamy pneumoniae PCR Not detected Adenovirus (PCR) Not detected B. pertussis DNA (PCR) Not detected B.parapertussis DNA PCR Not detected Coronavirus OC43 (PCR) Not detected Coronavirus HKU1 (PCR) Not detected Coronavirus 229E (PCR) Not detected SARS-CoV-2 (PCR) Not detected Coronavirus NL63 (PCR) Not detected Human Metapneumovir PCR Not detected Influenza Type A (PCR) Not detected Influenza Type B (PCR) Not detected M. pneumoniae (PCR) Not detected Parainfluenza 1 (PCR) Not detected Parainfluenza 2 (PCR) Not detected Parainfluenza 3 (PCR) Not detected Parainfluenza 4 (PCR) Detected H RSV (PCR) Not detected Entero/Rhino (PCR) Detected H PFSH Social History Smoking Status: Never smoker alcohol intake: current Assessment & Plan Assessment & Plan narrative: Assessment & Plan narrative: 1. Atypical pneumonia, present on admission and active. 2. Acute hypoxic respiratory failure, present on admission and active. 3. Demand ischemia, present on admission and active. 4. Respiratory PCR positive for parainfluenza virus and enterovirus, present on admission and active. 5. Anemia, Present on admission and active. Plan: -Continue empiric antibiotics for pneumonia (3-5 day course), Levoquin and doxycycline (started in ED-PCN allergy). -wean O2 as able. -2D echo to assess LV function -trend troponins. - monitor hemoglobin (stable), and check stools to see if there heme-positive. -We will also add laboratories for iron, B12, and folate. DNR/DNI Selective treatments. She requires a 2nd midnight of hospital care for her ongoing treatment of pneumonia, this supports inpatient status. SARAHI is July 16. Time-Based Coding :: [TOTAL MINUTES] spent with patient and on the chart (including review of chart, obtaining history, exam, reviewing outside data, placing orders, documenting exam and treatment plan, and counseling patient) on [DATE].
[2024-07-15] MEDS: GABAPENTIN 100 MG CAPSULE PO ×3 (08:25→20:14)
[2024-07-15] MEDS: HEPARIN 5,000 UNIT/ML VIAL 5000 UNIT SUBCUT ×2 (08:25→20:13)
[2024-07-15] MEDS: guaiFENesin ER 600 MG TAB PO ×2 (08:25→20:14)
[2024-07-15] MEDS: buPROPion SR 100 MG TAB PO ×2 (08:25→20:13)
[2024-07-15 09:06] LABS: Reticulocyte Count, Percent 2.4 % (1.1-2.6)
[2024-07-15 09:11] LABS: HEMOLYSIS < 15 (0-50); Iron 21 ug/dL (37-170)
[2024-07-15 09:22] LABS: Percent Iron Saturation 8 % (15-50); Total Iron Binding Capacity 273 ug/dL (265-497); Transferrin 201 mg/dL (206-381)
[2024-07-15 10:19] LABS: Folate > 20.0 ng/mL (2.76-20.0); Vitamin B12 717 pg/mL (239-931)
[2024-07-15] MEDS: PANTOPRAZOLE DR 40 MG TABLET PO (12:22)
[2024-07-15] MEDS: CLOPIDOGREL 75 MG TABLET PO (12:22)
[2024-07-15] MEDS: ATORVASTATIN 20 MG TABLET 80 MG PO (12:23)
[2024-07-15] MEDS: FOLIC ACID 1 MG TABLET PO (12:23)
--- NOTE | 2024-07-15 12:45 | DI.ECHO.S_ITS ---
[facility] : : [address] : : [place] : : [id number] : : Phone: [phone] Echocardiogram Report + + :Name: TELMA JOHNSON Study Date: 07/15/2024 Height: 66 in : :[facility] ReadingLocation: Weight: 222 lb : : Gender: Female BSA: 2.1 m2 : :: 1960 Age: 64 yrs BP: 105/68 mmHg: :Reason For Study: DYSPNEA, HISTORY OF : :Ordering Physician: KALLIE, : :SAROJ Celestin Performed By: Michelle Hardy : :Referring: SAROJ BEARDEN : + + Interpretation Summary 1. Normal LV contractility. EF > 55%. No WMA. No LVH. Age appropriate diastolic function. 2. Normal RV contractility. 3. Normal chamber sizes. Lipomatous intra-atrial septum. 4. Mild with mean gradient of 7 mmHg and dimensionless index 0.59. 5. No obvious intracardiac shunts. 6. No obvious intracardiac masses/thrombi. 7. No hemodynamically significant pericardial effusion. 8. Low right sided filling pressures Conclusion: Normal biventricular function with mild aortic valvular stenosis. Procedure: A two-dimensional transthoracic echocardiogram with color flow and Doppler was performed. The study quality was technically adequate. There is no prior echocardiogram noted for this patient. The patient was in sinus tachycardia with heart rates between 87-106 bpm during the exam. Left Ventricle: The left ventricle is normal in size and wall thickness. The ejection fraction is estimated to be 55-60%. Right Ventricle: The right ventricle is normal in size and function. Atria: The left atrial size is normal. Right atrial size is normal. There is no Doppler evidence for an interatrial shunt. Mitral Valve: The mitral valve is normal in structure and function. There is trace mitral regurgitation. Aortic Valve: The aortic valve is trileaflet. There is moderate aortic valve sclerosis. The peak aortic velocity is 1.9 m/sec. The aortic valve mean gradient is 7 mmHg. The calculated aortic valve area is 1.3 cm2. No aortic regurgitation is present. Tricuspid Valve: The tricuspid valve is normal in structure and function. There is trace tricuspid regurgitation. The right ventricular systolic pressure is estimated to be at least 32 mmHg based on an estimated right atrial pressure of 3 mm Hg. Pulmonic Valve: The pulmonic valve is not well visualized. There is no pulmonic valvular regurgitation. Great Vessels: The aortic root is normal size. The ascending aorta could not be visualized. The IVC is of normal diameter and collapses greater than 50% with a sniff. This suggests a low right atrial pressure of 3 mm Hg. Pericardium/ Pleura There is no pericardial effusion. There is no pleural effusion. MMode/2D Measurements & Calculations LVIDd: 4.9 cm LVOT diam: 1.9 cm LVIDs: 3.4 cm Ao root diam: 2.9 cm FS: 30.7 % EPSS: 0.60 cm IVSd: 1.0 cm LVPWd: 0.80 cm LV carreon. diameter/BSA (cm/m^2): 2.3 LV sys. diameter/BSA (cm/m^2): 1.6 LA A2 area: 21.6 cm2 RA long axis: 5.0 cm LA A4 area: 15.5 cm2 RA area: 16.2 cm2 LA length (vol): 5.0 cm RA vol: 44.3 ml LA vol: 57.3 ml RA : 21.2 ml/m2 LA vol index: 27.4 ml/m2 IVC diam: 1.8 cm RVD1 (basal): 3.2 cm RVD2 (mid): 3.1 cm TAPSE: 1.8 cm Doppler Measurements & Calculations Ao V2 max: 186.9 cm/sec LVOT Max Toby: 92.6 cm/sec Ao V2 mean: 126.0 cm/sec LV V1 max P.4 mmHg Ao max P.8 mmHg LV V1 VTI: 18.8 cm Ao mean P.2 mmHg MUNA(I,D): 1.6 cm2 Ao V2 VTI: 31.9 cm MUNA(V,D): 1.3 cm2 sev ratio: 0.59 MUNA indexed to BSA (cm^2/m^2): 0.77 MV E max toby: 80.9 cm/sec TR max toby: 266.9 cm/sec MV A max toby: 98.4 cm/sec TR max P.5 mmHg MV E/A: 0.82 PA V2 max: 113.1 cm/sec Med Peak E' Toby: 9.2 cm/sec PA V2 mean: 80.6 cm/sec E/E' med: 8.8 PA mean P.9 mmHg Lat Peak E' Toby: 11.3 cm/sec PA pr(Accel): 48.2 mmHg E/E' lat: 7.2 E/e' average: 8.0 MV dec time: 0.22 sec SV(LVOT): 51.1 ml Reading Physician:
[2024-07-15] MEDS: levoFLOXacin 750 MG/150 ML PIGGYBACK 100 MG IV (14:09)
--- NOTE | 2024-07-15 14:13 | CM.DANOTE ---
Initial DCP Assessment Visit Note Reviewed EMR and team rounds for status updates. Did not meet with pt f/f due to active, symptomatic community acquired pneumonia and severe coughing. Pt resides long-term at [facility]. [facility] will tranport her back once she's medically cleared for d/c, anticipated for Friday, 07/16. Payor: [facility] PCP: Dr. Rodriguez Pt is a 64 year-old disabled F who presented to the ED last evening via BLS from [facility] for further eval of suspected pneumonia. She has had a raspy cough for about a week, was found to be hypoxic, and had been started on nasal cannula O2 and given a dose of DuoNeb while en route, with good effect. She was dx with community acquired pneumonia, started on IV ABO's/fluids, and has PRN DuoNebs ordered. She was then brought to the floor for further tx and monitoring. DCP will continue to follow and assist with any further evolving needs prior to her d/c. Discharge Planning/Care Management CM Discharge Assessment Start: 07/15/24 13:56 Freq: Status: Active Protocol: Document 07/15/24 13:57 DPL (Rec: 07/15/24 14:09 DPL [id number]) Discharge Planning Assessment Assigned Train Attendant LALO Mccann Advance Directives? No History Provided By Medical Record Has Patient been admitted in last 30 No days? Prior Living Arrangements Skilled Nurse Facility Comment Pt resides at [facility] long- term. Household Members none Type of transporation used prior to Relies on Others admit Facility Name Admitted From: [facility] Independent with ADL's No: requires assistance from staff Is patient alert and oriented? Yes: self and birthday Needs Assistance With Bathing,Grooming,Meal Prep, Managing Medications,Home Chores / Shopping Caregiver for Another No DME Already Rented / Owned Bath Bench,Hospital Bed, Elevated Toilet Seat,FWW / Walker Patient/Family Preference Retirement Facility Barriers to Discharge No Discharge Plan Retirement Facility Transportation Arrangement Facility Referrals Initiated None needed If patient plan is SNF: Has PASSR been No completed? Comment Not needed due to that's her LTC facility. Whiteboard Updated in Patient Room with No name and ext. # of Train Attendant Comment Did not enter room due to active/symptomatic community aquired pneumonia, coughing. Review Status In Process Please Provide Date Initial DC 07/15/24 Assessment Was Performed
[2024-07-15 14:45] LABS: Ferritin 26 ng/mL (11-264)
[2024-07-15] MEDS: CALCIUM CARBONATE 500 MG TAB PO (20:13)
[2024-07-15] MEDS: AMITRIPTYLINE 25 MG TABLET 50 MG PO (20:14)
[2024-07-15] MEDS: risperiDONE 1 MG TABLET 3 MG PO (20:14)
[2024-07-16] VITALS (8 sets, daily range): BP systolic 114–137; BP diastolic 50–73; PULSE 93–100; RESP 15–24; TEMP 36.2–37.2; O2SAT 86–96
[2024-07-16] MEDS: BENZONATATE 100 MG CAPSULE PO ×2 (00:21→19:54)
[2024-07-16] MEDS: DOXYCYCLINE 100 MG in SODIUM CHLORIDE 0.9% 100 ML IV ×2 (04:27→16:41)
--- NOTE | 2024-07-16 07:00 | PC.NURSE ---
Patient requiring oxygen through the night, desats to low 80's on room air. Tolerating oxymask.
[2024-07-16] MEDS: ALBUTEROL/IPRATROPIUM 3 ML AMPUL INH (08:00)
[2024-07-16] MEDS: ATORVASTATIN 20 MG TABLET 80 MG PO (08:00)
[2024-07-16] MEDS: GABAPENTIN 100 MG CAPSULE PO ×3 (08:01→19:55)
[2024-07-16] MEDS: HEPARIN 5,000 UNIT/ML VIAL 5000 UNIT SUBCUT ×2 (08:01→19:54)
[2024-07-16] MEDS: CLOPIDOGREL 75 MG TABLET PO (08:01)
[2024-07-16] MEDS: buPROPion SR 100 MG TAB PO ×2 (08:01→19:54)
[2024-07-16] MEDS: guaiFENesin ER 600 MG TAB PO ×2 (08:01→19:54)
[2024-07-16] MEDS: PANTOPRAZOLE DR 40 MG TABLET PO (08:01)
[2024-07-16] MEDS: FUROSEMIDE 20 MG TABLET PO (08:02)
[2024-07-16] MEDS: FOLIC ACID 1 MG TABLET PO (08:02)
[2024-07-16] MEDS: LACTOBACILLUS ACIDOPHILUS TABLET 1 EACH PO (08:08)
[2024-07-16] MEDS: CHOLECALCIFEROL (VITAMIN D3) 1,000 UNIT TABLET 2000 UNIT PO (08:08)
[2024-07-16] MEDS: TOPIRAMATE 100 MG TABLET PO (08:08)
[2024-07-16] MEDS: LACTULOSE 20 GM/30 ML SOLUTION PO (08:08)
--- NOTE | 2024-07-16 10:17 | PC.NURSE ---
Pt sat at 86%. She refused to wear NC or oxy mask. Educated patient on the reason for the additional oxygenation needed. Pt agreeable to wear oxy mask at this time, 1L.
--- NOTE | 2024-07-16 11:52 | CM.DPC ---
206/Zach: 89yo M, presented for multiple falls, hyponatremia, gait instability. Social admit after 48hours of boarding in ED due no safe dc plan; lives alone with a caregiver for 3hrs every Friday. Was initially a SNF placement but no acute dx for insurance auth. Dawson [facility] is now following, will do bedside assessment on Friday, 07/16 at 10:30am. Earliest move in after assessment is 07/19. Point of contact at [facility] is Rubi, Hot Repairman (ph#[phone], email: [email or web address]).?
--- NOTE | 2024-07-16 11:52 | CM.DPNOTE ---
DCP Continued: Reviewed EMR and team rounds for pt?s medical status. DCP spoke with [facility] admissions and it was identified that clear documentation that pt is no longer contagious and isolation precautions have been dropped. Patient shares a room with another resident. DCP notified hospitalist of the above. Plan: Anticipating discharge back to [facility] when medically stable and is no longer contagious. CM Team will continue to follow for coordination of discharge plans. GIANLUCA Vásquez
[2024-07-16] MEDS: levoFLOXacin 750 MG/150 ML PIGGYBACK 100 MG IV (14:44)
--- NOTE | 2024-07-16 15:51 | PM.PN.1 ---
Subjective Subjective Date Patient Seen: 07/16/24 Time Patient Seen: 13:47 Interval history: Summary: Patient was admitted from long-term care with a cough. Her PCR was positive for parainfluenza virus and enterovirus. She was also anemic. She does meet criteria for inpatient care and appears to require a 2nd midnight in the hospital for ongoing treatment of pneumonia and evaluation and monitoring of anemia. S: She states she is feeling better. She has persistent weakness though is able to ambulate in the room to the bathroom. She continues to cough. Exam Vital Signs (past 8 hours): - 07/16/24 08:15 07/16/24 08:59 07/16/24 12:00 Temperature 98.0 F 98.7 F Pulse Rate 98 H 99 H 96 H Respiratory Rate 17 20 16 Blood Pressure 130/66 129/66 Pulse Oximetry 86 L 89 L 91 Oxygen Delivery Method Room Air Oxygen Flow Rate 0 0 Oxygen Delivery Method Room Air Oxygen Flow Rate 0 Narrative Exam Narrative: NAD, alert and oriented. Fluent speech. Lungs are with scattered rhonchi, normal rate and effort. Heart is regular, no murmur gallop or rub. Abdomen is soft, non distended. Extremities are free of edema. Objective Imaging Echo: Radiologist's impression: 1. Normal LV contractility. EF > 55%. No WMA. No LVH. Age appropriate diastolic function. 2. Normal RV contractility. 3. Normal chamber sizes. Lipomatous intra-atrial septum. 4. Mild with mean gradient of 7 mmHg and dimensionless index 0.59. 5. No obvious intracardiac shunts. 6. No obvious intracardiac masses/thrombi. 7. No hemodynamically significant pericardial effusion. 8. Low right sided filling pressures Conclusion: Normal biventricular function with mild aortic valvular stenosis. Labs 07/15/24 06:10 07/15/24 06:10 PENDING SALE TO [facility] Social History household members: none Smoking Status: Never smoker alcohol intake: current Assessment & Plan Assessment & Plan narrative: 1. Atypical pneumonia, present on admission and active. 2. Acute hypoxic respiratory failure, present on admission and active. 3. Demand ischemia, present on admission and active. Normal echo. 4. Respiratory PCR positive for parainfluenza virus and enterovirus, present on admission and active. 5. Anemia, iron deficiency. Normal B12 and folate. Present on admission and active, with hematocrit 26.2% on 09/05/2023 noted. Plan: -Continue empiric antibiotics for pneumonia with Levoquin and doxycycline (started in ED-PCN allergy) through 07/17/2024. -wean O2 as able. -monitor hemoglobin (stable), and check stools to see if there heme-positive. -check stool guaiacs, start oral iron DNR/DNI Selective treatments. She requires a 2nd midnight of hospital care for her ongoing treatment of pneumonia, this supports inpatient status. SARAHI is July 16. PROFEE Charge codes Subsequent inpatient/observation care: 26365
[2024-07-16] MEDS: risperiDONE 1 MG TABLET 3 MG PO (19:53)
[2024-07-16] MEDS: OXYCODONE IR 10 MG TABLET PO (19:53)
[2024-07-16] MEDS: AMITRIPTYLINE 25 MG TABLET 50 MG PO (19:53)
[2024-07-17 02:00] VITALS: BP 124/74; PULSE 94; RESP 22; TEMP 37.2; O2SAT 89
[2024-07-17] MEDS: BENZONATATE 100 MG CAPSULE PO (02:06)
[2024-07-17] MEDS: guaiFENesin Solution 100 MG/5 ML UDC 200 MG PO ×3 (06:16→20:08)
--- NOTE | 2024-07-17 06:53 | PC.NURSE ---
Pt sats 88%-90% throughout the night. Intermittently wore oxymask through the night and would remove it. Patient education provided for need for supplemental oxygen. Refused oxymask this morning, stating that she wouldn't put it on because it smells like rotten eggs. New oxymask provided, she stated much better. Sats at 94% on 2L.
--- NOTE | 2024-07-17 07:29 | PM.PN.1 ---
Subjective Subjective Date Patient Seen: 07/17/24 Time Patient Seen: 09:40 Interval history: Summary: Patient was admitted from long-term care with a cough. Her PCR was positive for parainfluenza virus and enterovirus. She was also anemic. She does meet criteria for inpatient care and appears to require a 2nd midnight in the hospital for ongoing treatment of pneumonia and evaluation and monitoring of anemia. S: She states she is feeling better,, much improved, oxygen saturations 89% on room air. Exam Vital Signs (past 8 hours): - 07/17/24 02:00 Temperature 98.9 F Pulse Rate 94 H Respiratory Rate 22 Blood Pressure 124/74 Pulse Oximetry 89 L Oxygen Flow Rate 0 Oxygen Delivery Method Oximask Oxygen Flow Rate 0 Narrative Exam Narrative: NAD, alert and oriented. Fluent speech. Lungs are with scattered rhonchi, normal rate and effort. Heart is regular, no murmur gallop or rub. Abdomen is soft, non distended. Extremities are free of edema. Objective Labs 07/15/24 06:10 07/15/24 06:10 [facility] Social History household members: none Smoking Status: Never smoker alcohol intake: current Assessment & Plan Assessment & Plan narrative: 1. Atypical pneumonia, present on admission and active. 2. Acute hypoxic respiratory failure, present on admission and active. 3. Demand ischemia, present on admission and active. Normal echo. 4. Respiratory PCR positive for parainfluenza virus and enterovirus, present on admission and active. 5. Anemia, iron deficiency. Normal B12 and folate. Present on admission and active, with hematocrit 26.2% on 09/05/2023 noted. Plan: -Continue empiric antibiotics for pneumonia with Levoquin and doxycycline (started in ED-PCN allergy) through 07/17/2024, stopping today -wean O2 as able. -monitor hemoglobin (stable), and check stools to see if there heme-positive. -check stool guaiacs, continue oral iron DNR/DNI Selective treatments. She requires a 2nd midnight of hospital care for her ongoing treatment of pneumonia, this supports inpatient status. SARAHI is July 17, but discharge delayed due to inability of receiving facility to accept patient today. PROFEE Charge codes Subsequent inpatient/observation care: 25763
[2024-07-17 08:00] VITALS: BP 110/52; PULSE 93; RESP 16; TEMP 36.8; O2SAT 87
[2024-07-17] MEDS: PANTOPRAZOLE DR 40 MG TABLET PO (08:26)
[2024-07-17] MEDS: CHOLECALCIFEROL (VITAMIN D3) 1,000 UNIT TABLET 2000 UNIT PO (08:26)
[2024-07-17] MEDS: buPROPion SR 100 MG TAB PO ×2 (08:26→20:09)
[2024-07-17] MEDS: GABAPENTIN 100 MG CAPSULE PO ×3 (08:27→20:09)
[2024-07-17] MEDS: ATORVASTATIN 20 MG TABLET 80 MG PO (08:27)
[2024-07-17] MEDS: HEPARIN 5,000 UNIT/ML VIAL 5000 UNIT SUBCUT ×2 (08:27→20:09)
[2024-07-17] MEDS: LACTOBACILLUS ACIDOPHILUS TABLET 1 EACH PO (08:27)
[2024-07-17] MEDS: guaiFENesin ER 600 MG TAB PO ×2 (08:27→20:09)
[2024-07-17] MEDS: LACTULOSE 20 GM/30 ML SOLUTION PO (08:28)
[2024-07-17] MEDS: CLOPIDOGREL 75 MG TABLET PO (08:28)
[2024-07-17] MEDS: TOPIRAMATE 100 MG TABLET PO (08:28)
[2024-07-17] MEDS: FERROUS SULFATE 325 MG TABLET PO (08:28)
[2024-07-17] MEDS: FUROSEMIDE 20 MG TABLET PO (08:28)
[2024-07-17] MEDS: FOLIC ACID 1 MG TABLET PO (08:28)
[2024-07-17] MEDS: DOXYCYCLINE HYCLATE 100 MG TABLET PO ×2 (08:28→20:09)
[2024-07-17] MEDS: CALCIUM CARBONATE 500 MG TAB PO (08:28)
[2024-07-17] MEDS: ALBUTEROL/IPRATROPIUM 3 ML AMPUL INH (09:46)
[2024-07-17 09:47] VITALS: PULSE 99; RESP 18; O2SAT 92
--- NOTE | 2024-07-17 10:43 | PC.NURSE ---
Addendum entered by Perez Reilly R.N. 07/17/24 18:57: transfer back to [facility] postponed till possibly Friday. Pt tolerating days activities , getting up to BSC with assistance, gait belt and walker. Original Note: alert and oriented able to express needs. anticipating returning to [facility] today.
[2024-07-17 12:00] VITALS: BP 132/70; PULSE 94; RESP 16; TEMP 37; O2SAT 89
--- NOTE | 2024-07-17 12:30 | CM.DPC ---
DCP SNF Cont: Per MD, pt medically stable to d/c to SNF today and off contact precautions and recommendation for precautions only in hospital setting and not needed outside of the hospital. EVY called [facility] admissions Nereida and she confirms that they are short staffed and cannot accept pt over the weekend but have her tentatively scheduled with transport for Fri07/19/24 around [id number]. EVY updated UR and MD on avoidable day due to facility staffing issue. LALO Maldonado
[2024-07-17] MEDS: OXYCODONE IR 10 MG TABLET PO ×2 (13:45→20:09)
[2024-07-17] MEDS: levoFLOXacin 250 MG TABLET 750 MG PO (14:57)
[2024-07-17 18:00] VITALS: BP 124/73; PULSE 90; RESP 14; TEMP 36.7; O2SAT 91
[2024-07-17 20:00] VITALS: BP 121/58; PULSE 94; RESP 19; TEMP 36.6; O2SAT 93
[2024-07-17] MEDS: AMITRIPTYLINE 25 MG TABLET 50 MG PO (20:09)
[2024-07-17] MEDS: risperiDONE 1 MG TABLET 3 MG PO (20:09)
[2024-07-18 02:05] VITALS: BP 130/66; PULSE 86; RESP 19; TEMP 36.7; O2SAT 94
[2024-07-18] MEDS: guaiFENesin Solution 100 MG/5 ML UDC 200 MG PO ×3 (04:08→17:41)
[2024-07-18 06:06] LABS: Add Manual Diff / Slide Review NO; Basophils Absolute Auto 100 /uL (0-100); Basophils Percent Auto 0.6 % (0-2); Eosinophils Absolute Auto 500 /uL (0-450); Eosinophils Percent Auto 4.6 % (2-4); Hematocrit 29.1 % (36-46); Hemoglobin 8.9 g/dL (12.0-16.0); Lymphocytes Absolute Auto 1600 /uL (1100-4500); Lymphocytes Percent Auto 16.6 % (25-40); Mean Corpuscular HGB Conc 30.7 % (30-36); Mean Corpuscular Hemoglobin 24.4 PG (26-34); Mean Corpuscular Volume 79.5 fL (80-100); Monocytes Absolute Auto 1000 /uL (0-900); Monocytes Percent Auto 10.3 % (3-14); Neutrophils Absolute Auto 6600 /uL (1500-7000); Neutrophils Percent Auto 67.9 % (50-75); Platelet Count 464 X10^3/uL (150-400); Red Blood Cell Count 3.65 X10^6/uL (4.0-5.2); White Blood Cell Count 9.8 X10^3/uL (4.5-11.0)
[2024-07-18 06:33] LABS: BUN Creatinine Ratio 18.3 (6-22); Blood Urea Nitrogen 13 mg/dL (7-17); Calcium 8.5 mg/dL (8.4-10.2); Carbon Dioxide 27 mmol/L (22-32); Chloride 104 mmol/L (98-107); Estimated Glomerular Filt Rate > 60 mL/min (>60); Glucose 175 mg/dL (80-110); HEMOLYSIS < 15 (0-50); Potassium 3.4 mmol/L (3.4-5.1); Sodium 137 mmol/L (137-145)
[2024-07-18 07:23] LABS: Anisocytosis 3+
[2024-07-18 07:24] LABS: Microcytosis 1+
[2024-07-18 07:25] LABS: Ovalocytes 1+; Polychromasia 1+
--- NOTE | 2024-07-18 07:44 | PM.PN.1 ---
Subjective Subjective Date Patient Seen: 07/18/24 Time Patient Seen: 09:40 Interval history: Summary: Patient was admitted from long-term care with a cough. Her PCR was positive for parainfluenza virus and enterovirus. She was also anemic. She does meet criteria for inpatient care and appears to require a 2nd midnight in the hospital for ongoing treatment of pneumonia and evaluation and monitoring of anemia. S: Patient reports feeling better. She is off oxygen at this point. She has been up walking in the room. Exam Vital Signs (past 8 hours): - 07/18/24 02:05 Temperature 98.0 F Pulse Rate 86 Respiratory Rate 19 Blood Pressure 130/66 Pulse Oximetry 94 Oxygen Flow Rate 2 Oxygen Delivery Method Oximask Oxygen Flow Rate 2 Narrative Exam Narrative: NAD, alert and oriented. Fluent speech. Lungs are with minimal rhonchi, normal rate and effort. Heart is regular, no murmur gallop or rub. Abdomen is soft, non distended. Extremities are free of edema. Objective Labs 07/18/24 05:47 07/18/24 05:47 Labs: Laboratory Results - last 24 hr 07/18/24 05:47 WBC 9.8 RBC 3.65 L Hgb 8.9 L Hct 29.1 L MCV 79.5 L MCH 24.4 L MCHC 30.7 RDW 30.0 H Plt Count 464 H Neut % (Auto) 67.9 Lymph % (Auto) 16.6 L [place] % (Auto) 10.3 Eos % (Auto) 4.6 H Baso % (Auto) 0.6 Neut # (Auto) 6600 Lymph # (Auto) 1600 [place] # (Auto) 1000 H Eos # (Auto) 500 H Baso # (Auto) 100 RBC Morphology See below Polychromasia 1+ H Anisocytosis 3+ H Microcytosis 1+ H Ovalocytes 1+ H Sodium 137 Potassium 3.4 Chloride 104 Carbon Dioxide 27 BUN 13 Creatinine 0.71 Estimated GFR > 60 BUN/Creatinine Ratio 18.3 Glucose 175 H Calcium 8.5 PFSH Social History household members: none Smoking Status: Never smoker alcohol intake: current Assessment & Plan Assessment & Plan narrative: 1. Atypical pneumonia, present on admission and active. Treated with empiric antibiotics for pneumonia with Levoquin and doxycycline (started in ED-PCN allergy) through 07/17/2024. Blood cultures negative. 2. Acute hypoxic respiratory failure, present on admission and active. 3. Demand ischemia, present on admission and active. Normal echo. 4. Respiratory PCR positive for parainfluenza virus and enterovirus, present on admission and active. 5. Anemia, iron deficiency. Normal B12 and folate. Present on admission and active, with hematocrit 26.2% on 09/05/2023 noted. Plan: -wean O2 as able. -monitor hemoglobin (stable), and check stools to see if there heme-positive. -check stool guaiacs, continue oral iron -discharge back to [facility] tomorrow off antibiotics DNR/DNI Selective treatments. She requires a 2nd midnight of hospital care for her ongoing treatment of pneumonia, this supports inpatient status. SARAHI is July 17, but discharge delayed due to inability of receiving facility to accept patient today. PROFEE Charge codes Subsequent inpatient/observation care: 61502
[2024-07-18 07:46] VITALS: BP 111/53; PULSE 82; RESP 18; TEMP 36.1; O2SAT 95
[2024-07-18] MEDS: buPROPion SR 100 MG TAB PO ×2 (08:23→20:13)
[2024-07-18] MEDS: CHOLECALCIFEROL (VITAMIN D3) 1,000 UNIT TABLET 2000 UNIT PO (08:23)
[2024-07-18] MEDS: guaiFENesin ER 600 MG TAB PO ×2 (08:23→20:13)
[2024-07-18] MEDS: CLOPIDOGREL 75 MG TABLET PO (08:23)
[2024-07-18] MEDS: GABAPENTIN 100 MG CAPSULE PO ×3 (08:24→20:14)
[2024-07-18] MEDS: LACTULOSE 20 GM/30 ML SOLUTION PO (08:24)
[2024-07-18] MEDS: FERROUS SULFATE 325 MG TABLET PO (08:24)
[2024-07-18] MEDS: FUROSEMIDE 20 MG TABLET PO (08:24)
[2024-07-18] MEDS: HEPARIN 5,000 UNIT/ML VIAL 5000 UNIT SUBCUT ×2 (08:24→20:13)
[2024-07-18] MEDS: LACTOBACILLUS ACIDOPHILUS TABLET 1 EACH PO (08:24)
[2024-07-18] MEDS: PANTOPRAZOLE DR 40 MG TABLET PO (08:24)
[2024-07-18] MEDS: FOLIC ACID 1 MG TABLET PO (08:24)
[2024-07-18] MEDS: CALCIUM CARBONATE 500 MG TAB PO ×2 (08:24→20:13)
[2024-07-18] MEDS: POTASSIUM CHLORIDE 20 MEQ TAB 40 MEQ PO (08:24)
[2024-07-18] MEDS: DOXYCYCLINE HYCLATE 100 MG TABLET PO ×2 (08:24→20:13)
[2024-07-18] MEDS: TOPIRAMATE 100 MG TABLET PO (08:24)
[2024-07-18] MEDS: ATORVASTATIN 20 MG TABLET 80 MG PO (08:25)
[2024-07-18] MEDS: OXYCODONE IR 10 MG TABLET PO ×3 (08:38→20:53)
[2024-07-18 09:13] VITALS: PULSE 99; RESP 16; O2SAT 89
[2024-07-18 14:00] VITALS: BP 129/66; PULSE 87; RESP 18; TEMP 36.4; O2SAT 95
[2024-07-18] MEDS: levoFLOXacin 250 MG TABLET 750 MG PO (15:16)
[2024-07-18 20:04] VITALS: BP 119/60; PULSE 89; RESP 19; TEMP 36.5; O2SAT 92
[2024-07-18] MEDS: risperiDONE 1 MG TABLET 3 MG PO (20:13)
[2024-07-18] MEDS: AMITRIPTYLINE 25 MG TABLET 50 MG PO (20:13)
[2024-07-19] MEDS: guaiFENesin Solution 100 MG/5 ML UDC 200 MG PO (01:40)
[2024-07-19 02:00] VITALS: BP 134/76; PULSE 88; RESP 19; TEMP 36.4; O2SAT 96
[2024-07-19 06:04] LABS: Add Manual Diff / Slide Review NO; Basophils Absolute Auto 0 /uL (0-100); Basophils Percent Auto 0.4 % (0-2); Eosinophils Absolute Auto 500 /uL (0-450); Eosinophils Percent Auto 5.2 % (2-4); Hematocrit 29.9 % (36-46); Hemoglobin 9.3 g/dL (12.0-16.0); Lymphocytes Absolute Auto 2100 /uL (1100-4500); Lymphocytes Percent Auto 20.4 % (25-40); Mean Corpuscular Hemoglobin 24.6 PG (26-34); Mean Corpuscular Volume 79.5 fL (80-100); Monocytes Absolute Auto 1100 /uL (0-900); Monocytes Percent Auto 10.4 % (3-14); Neutrophils Absolute Auto 6600 /uL (1500-7000); Neutrophils Percent Auto 63.6 % (50-75); Platelet Count 443 X10^3/uL (150-400); Red Blood Cell Count 3.76 X10^6/uL (4.0-5.2); Red Cell Distribution Width 30.3 % (11.6-14.8); White Blood Cell Count 10.3 X10^3/uL (4.5-11.0)
[2024-07-19 06:44] LABS: Anisocytosis 3+; Microcytosis 2+; Ovalocytes 1+; Platelet Estimate Increased on smear
[2024-07-19 08:00] VITALS: BP 105/53; PULSE 94; RESP 19; TEMP 36.5; O2SAT 88
[2024-07-19] MEDS: DOXYCYCLINE HYCLATE 100 MG TABLET PO (08:39)
[2024-07-19] MEDS: CHOLECALCIFEROL (VITAMIN D3) 1,000 UNIT TABLET 2000 UNIT PO (08:39)
[2024-07-19] MEDS: GABAPENTIN 100 MG CAPSULE PO (08:39)
[2024-07-19] MEDS: LACTOBACILLUS ACIDOPHILUS TABLET 1 EACH PO (08:39)
[2024-07-19] MEDS: FOLIC ACID 1 MG TABLET PO (08:39)
[2024-07-19] MEDS: guaiFENesin ER 600 MG TAB PO (08:39)
[2024-07-19] MEDS: buPROPion SR 100 MG TAB PO (08:40)
[2024-07-19] MEDS: TOPIRAMATE 100 MG TABLET PO (08:40)
[2024-07-19] MEDS: CALCIUM CARBONATE 500 MG TAB PO (08:40)
[2024-07-19] MEDS: HEPARIN 5,000 UNIT/ML VIAL 5000 UNIT SUBCUT (08:40)
[2024-07-19] MEDS: CLOPIDOGREL 75 MG TABLET PO (08:40)
[2024-07-19] MEDS: ATORVASTATIN 20 MG TABLET 80 MG PO (08:40)
[2024-07-19] MEDS: FUROSEMIDE 20 MG TABLET PO (08:40)
[2024-07-19] MEDS: FERROUS SULFATE 325 MG TABLET PO (08:40)
[2024-07-19] MEDS: PANTOPRAZOLE DR 40 MG TABLET PO (08:40)
[2024-07-19] MEDS: LACTULOSE 20 GM/30 ML SOLUTION PO (08:41)
[2024-07-19] MEDS: OXYCODONE IR 10 MG TABLET PO (08:45)
--- NOTE | 2024-07-19 08:47 | PM.DS.1 ---
History of Present Illness History of Present Illness Date Patient Seen: 07/19/24 Chief complaint: SOB/hypoxia Narrative: Per admitting provider, From ED provider: Patient brought in by ambulance from care home for evaluation for pneumonia. Patient outpatient x-ray yesterday showed prominent pulmonary markings possible atypical pneumonia versus vasculature engorgement. Patient was prescribed antibiotics but they were not started. Raspy cough for 1 week. 84% room air by EMS. Improved with nasal cannula. Patient is awake alert oriented self and date of . She is DNR with selective treatments. DuoNeb treatment given by EMS and has helped patient. Given levofloxacin in the emergency department. Additional information: She has been ill for several days with a lot of chest congestion, productive cough, and dyspnea. She was had some wheezing in her lungs as well. She was also had some diarrhea. She notes that several people in the facility have been ill. Her respiratory PCR was positive for parainfluenza and enterovirus. She was given antibiotics in the emergency department. Discharge Providers Provider Date of admission: 07/14/24 16:34 Discharge Date: 07/19/24 Primary care physician: Adrián Rodriguez MD Discharge provider: Gio Jolly DO Summary Hospital Course Discharge Diagnosis: 1. Viral versus atypical bacterial pneumonia, present on admission and active. 2. Acute hypoxic respiratory failure, present on admission and active. 3. Demand ischemia, present on admission and active. Normal echo. 4. Respiratory PCR positive for parainfluenza virus and enterovirus, present on admission and active. 5. Anemia, iron deficiency. Normal B12 and folate. 6. RADHA Hospital Course: This is a 64-year-old female who was admitted with an acute hypoxic respiratory failure presumed secondary to an atypical bacterial pneumonia. Respiratory panel was positive for parainfluenza/enterovirus. She was treated with antibiotics levofloxacin and doxycycline by the admitting provider. Given her improvement and completion of an adequate course of antibiotics these were discontinued at the time of discharge. At the time of discharge she was noted to be hypoxic primarily at rest down to the upper 80s. When she was awake she was saturating well on room air. This is consistent with her known obstructive sleep apnea for which the patient does not comply with CPAP use. She can continue using oxygen intermittently at shelter facility with goal oxygenation of 89-96% on room air. No other changes to her home medications were recommended at the time of discharge. Time Spent with Patient Time spent: Greater than 30 minutes Exam Vital Signs (past 8 hours): - 07/19/24 02:00 Temperature 97.6 F Pulse Rate 88 Respiratory Rate 19 Blood Pressure 134/76 Pulse Oximetry 96 Oxygen Flow Rate 2 Oxygen Delivery Method Room Air Oxygen Flow Rate 2 Narrative Exam Narrative: NAD, alert and oriented. Fluent speech. Lungs are with minimal rhonchi, normal rate and effort. Heart is regular, no murmur gallop or rub. Abdomen is soft, non distended. Extremities are free of edema. Objective Labs 07/19/24 05:02 07/18/24 05:47 Labs: Laboratory Results - last 24 hr 07/19/24 05:02 WBC 10.3 RBC 3.76 L Hgb 9.3 L Hct 29.9 L MCV 79.5 L MCH 24.6 L MCHC 31.0 RDW 30.3 H Plt Count 443 H Neut % (Auto) 63.6 Lymph % (Auto) 20.4 L [place] % (Auto) 10.4 Eos % (Auto) 5.2 H Baso % (Auto) 0.4 Neut # (Auto) 6600 Lymph # (Auto) 2100 [place] # (Auto) 1100 H Eos # (Auto) 500 H Baso # (Auto) 0 Platelet Estimate Increased on smear RBC Morphology See below Anisocytosis 3+ H Microcytosis 2+ H Ovalocytes 1+ H PFSH Social History household members: none Smoking Status: Never smoker alcohol intake: current Discharge Plan Discharge Plan Patient Disposition: SNF Transfer to: [facility] Under care of provider: Adrián Rodriguez MD Consult as needed: Dental, Hearing, Mental health, Podiatry and Vision Discharge orders & Medications Prescriptions: New ferrous sulfate 325 mg (65 mg iron) Tablet 325 mg PO DAILY Qty: 30 0RF guaifenesin [Mucus Relief ER] 600 mg Tablet Extended Release 12hr 600 mg PO BID 7 Days Qty: 14 0RF guaifenesin 100 mg/5 mL Liquid 200 mg PO Q6HR PRN (Reason: Cough) Qty: 473 0RF oxycodone-acetaminophen 10-325 mg tablet 1 tab PO Q6H PRN (Reason: pain) 7 Days Qty: 30 0RF Continued risperidone [Risperdal] 1 MG tablet 3 mg PO BEDTIME Qty: 0 amitriptyline 100 MG tablet 50 mg PO HS Qty: 0 topiramate [Topamax] 100 MG tablet 100 mg PO Q DAY Qty: 0 CALCIUM CARBONATE (OYSTER SHELL CALCIUM~) 500 mg PO BID Qty: 0 acetaminophen [Tylenol Extra Strength] 500 MG tablet 1,000 mg PO Q6HP Qty: 0 lansoprazole 30 MG capsule,delayed release(DR/EC) 60 mg PO QDAY Qty: 0 ASPIRIN (#ASPIR-MIN) 325 mg PO Q DAY Qty: 0 CHOLECALCIFEROL (VITAMIN D) 2,000 iu PO Q DAY Qty: 0 atorvastatin 80 mg tablet 80 mg PO DAILY ipratropium-albuterol 0.5 mg-3 mg(2.5 mg base)/3 mL solution for nebulization 3 ml inhalation DAILY docusate calcium 240 mg Capsule 240 mg PO PRN PRN (Reason: contsipation) clopidogrel 75 mg tablet 75 mg PO DAILY Lactobacillus acidophilus Tablet 1 tab PO DAILY bisacodyl 10 mg Suppository 10 mg AR PRN PRN (Reason: Constipation) pantoprazole 40 mg tablet,delayed release (DR/EC) 40 mg PO DAILY folic acid 1 mg tablet 1 mg PO DAILY furosemide 20 mg tablet 20 mg PO DAILY gabapentin 100 mg capsule 100 mg PO 3XD polyethylene glycol 3350 [Miralax] 17 gram/dose Powder 17 g PO PRN PRN (Reason: Constipation) lactulose 20 gram/30 mL Solution 30 ml PO DAILY Wellbutrin SR 100 mg PO BID Discontinued oxycodone-acetaminophen 10-325 mg tablet 1 tab PO PRN PRN (Reason: Pain (Scale Score 4-6)) levofloxacin 750 mg tablet 750 mg PO DAILY doxycycline hyclate 100 mg tablet 100 mg PO BID Follow up/Referrals: Adrián Rodriguez MD [Primary Care Provider] - Discharge Health Status Precautions: Droplet Diet/Activity/Treatments Diet: Diet as Tolerated and Regular Liquid consistency: Normal/Thin Food texture: Regular Activity: As tolerated, no restrictions Oxygen: As needed for O2 89-96%. Patient has RADHA previously documented, no CPAP use Visit Report/Discharge Packet Stand Alone Forms: Patient Portal/API Discharge Data Primary Care Provider: Adrián Rodriguez
--- NOTE | 2024-07-19 10:39 | CM.DPC ---
DCP Discharge SNF Per MD, pt remains medically stable to d/c back to her LTC SNF facility today and was satting 88% on room air and will determine if O2 needed at d/c or not. EVY updated [facility] on SNF discharge and secure emailed signed med list and script and d/c summ to review and no PASRR needed as return to SNF. [facility] confirms transport today between [phone]. EVY updated business broker, MEDICAL LAB ASSISTANT, and RN. Plan: Patient to d/c back to [facility] today via facility van between [phone]. LALO Maldonado
== END 2024-07-19 11:57 | DRG 193 ==
LOC: ED 16:18 → AC 16:35
PROVIDERS: Internal Medicine; Admitting Provider Hospitalist; Emergency Provider Emergency Medicine; PCP Internal Medicine; Referring Provider Emergency Medicine; Visit Provider Hospitalist
DX: J12.2 Parainfluenza virus pneumonia (principal); J96.01 Acute respiratory failure with hypoxia; I24.89 Other forms of acute ischemic heart disease; J15.9 Unspecified bacterial pneumonia; B97.10 Unspecified enterovirus as the cause of diseases classified elsewhere; D50.9 Iron deficiency anemia, unspecified; Z66 Do not resuscitate
CPT/HCPCS: 36415; 71045; 71046; 80048; 80053; 82607; 82728; 82746; 83540; 83550; 83605; 83880; 84484; 85025; 85045; 85610; 87040; 87633; 93005; 93010; 93306; 94640; 94762; 96365; 99285; J1644; J1956; J7050

== ENCOUNTER → 2024-08-17 17:06 | Outpatient (ROUT) | payer MEDICARE, MEDICAID, SELFPAY ==
[2024-07-14 18:34] VITALS: BMI 35.8
[2024-08-17 17:28] LABS: Appearance Urine UA CLEAR; Bilirubin Urine UA NEGATIVE (NEGATIVE); Color Urine UA YELLOW; Glucose Urine UA NEGATIVE (Negative); Ketones Urine UA NEGATIVE (NEGATIVE); Leukocyte Esterase Urine UA NEGATIVE (NEGATIVE); Nitrite Urine UA NEGATIVE (Negative); Occult Blood Urine UA NEGATIVE (Negative); Protein Urine UA NEGATIVE (Negative); Specific Gravity Urine UA <=1.005 (1.000-1.035); Urobilinogen Urine UA 0.2 E.U./dL (0.2)
[2024-08-17 17:35] LABS: Bacteria Urine Occasional (0-1); Culture Indicated Urine Cult Not Indicated; RBC Urine 0-1/HPF (0-5/HPF); Squamous Epithelial Cell Urine 0-1 /HPF (0-5/HPF); Urine Volume 10mL (spun); WBC Urine 0-1/HPF (0-5/HPF)
== END ==
PROVIDERS: PCP Internal Medicine; Visit Provider Orthopaedic Surgery
DX: R33.9 Retention of urine, unspecified (principal); G62.9 Polyneuropathy, unspecified; N18.31 Chronic kidney disease, stage 3a
CPT/HCPCS: 81001

== ENCOUNTER → 2024-08-31 15:37 | Outpatient (ROUT) | payer MEDICARE, MEDICAID, SELFPAY ==
[2024-07-14 18:34] VITALS: BMI 35.8
[2024-08-31 16:10] LABS: Creatinine Urine Random 28.13 mg/dL
[2024-08-31 16:24] LABS: Microalbumin Urine Random < 0.6 mg/dL (0-1.6)
== END ==
PROVIDERS: PCP Internal Medicine; Visit Provider Internal Medicine
DX: N39.0 Urinary tract infection, site not specified (principal)
CPT/HCPCS: 82043; 82570

== ENCOUNTER → 2024-10-13 14:45 | Outpatient (CLI) | payer MEDICARE, MEDICAID, SELFPAY ==
[2024-07-14 18:34] VITALS: BMI 35.8
--- NOTE | 2024-10-13 | DI.RAD.S_ITS ---
PROCEDURE: XR CHEST 2V INDICATIONS: COUGH TECHNIQUE: 2 views of the chest were acquired. COMPARISON: [facility], , XR CHEST 1V, 07/14/2024, 16:16. FINDINGS: Heart, mediastinum and pulmonary vascular: Heart is normal in size and configuration. Mediastinum is unremarkable. Pulmonary vascular is normal. Lungs: Clear Pleural spaces: Normal-no effusions or pneumothorax. Bones and soft tissues: Mild chronic compression fractures seen throughout the mid lower thoracic spine IMPRESSION: No cardiopulmonary disease. Dictated by: Peewee Hurtado M.D. on 10/14/2024 at 13:15 Approved by: Peewee Hurtado M.D. on 10/14/2024 at 13:16
== END ==
LOC: RAD 14:50
PROVIDERS: PCP Internal Medicine
DX: M48.54XA Collapsed vertebra, not elsewhere classified, thoracic region, initial encounter for fracture (principal); R05.9 Cough, unspecified; R33.9 Retention of urine, unspecified; R53.1 Weakness
CPT/HCPCS: 71046; 87077; 87086

== ENCOUNTER → 2024-10-13 17:20 | Outpatient (ROUT) | payer MEDICARE, MEDICAID, SELFPAY ==
[2024-07-14 18:34] VITALS: BMI 35.8
== END ==
PROVIDERS: PCP Internal Medicine; Visit Provider Hospitalist
DX: R33.9 Retention of urine, unspecified (principal); R53.1 Weakness
CPT/HCPCS: 87086

== ENCOUNTER → 2024-10-16 16:03 | Outpatient (ROUT) | payer MEDICARE, MEDICAID, SELFPAY ==
[2024-07-14 18:34] VITALS: BMI 35.8
[2024-10-16 16:11] LABS: Appearance Urine UA SL CLOUDY; Bilirubin Urine UA NEGATIVE (NEGATIVE); Color Urine UA YELLOW; Glucose Urine UA NEGATIVE (Negative); Ketones Urine UA NEGATIVE (NEGATIVE); Leukocyte Esterase Urine UA 2+ (NEGATIVE); Nitrite Urine UA POSITIVE (Negative); Occult Blood Urine UA NEGATIVE (Negative); Protein Urine UA NEGATIVE (Negative); Specific Gravity Urine UA <=1.005 (1.000-1.035); Urobilinogen Urine UA 0.2 E.U./dL (0.2)
[2024-10-16 16:36] LABS: Amorphous Sediment Urine 3+; Bacteria Urine Many (>30); Culture Indicated Urine Specimen Cultured; RBC Urine 0-1/HPF (0-5/HPF); Squamous Epithelial Cell Urine 5-10 /HPF (0-5/HPF); Urine Volume 10mL (spun); WBC Urine 5-10/HPF (0-5/HPF)
== END ==
PROVIDERS: PCP Internal Medicine; Visit Provider Hospitalist
DX: R33.9 Retention of urine, unspecified (principal)
CPT/HCPCS: 81001; 87077; 87086; 87186

== ENCOUNTER → 2025-02-09 16:35 | Outpatient (ROUT) | payer MEDICARE, MEDICAID, SELFPAY ==
[2024-07-14 18:34] VITALS: BMI 35.8
[2025-02-09 17:26] LABS: Adenovirus Not Detected (Not Detect); B. parapertussis Not Detected (Not Detecte); Bordetella pertussis Not Detected (Not Detect); Chlamydophila pneumoniae Not Detected (Not Detect); Coronavirus 229E Not Detected (Not Detect); Coronavirus HKU1 Not Detected (Not Detect); Coronavirus NL 63 Not Detected (Not Detect); Coronavirus OC43 Not Detected (Not Detect); Human Metapneumovirus Not Detected (Not Detect); Human Rhinovirus/Enterovirus Not Detected (Not Detect); Influenza A Not Detected (Not Detect); Influenza B Not Detected (Not Detect); Mycoplasma pneumoniae Not Detected (Not Detect); Parainfluenza Virus 1 Detected (Not Detect); Parainfluenza Virus 2 Not Detected (Not Detect); Parainfluenza Virus 3 Not Detected (Not Detect); Parainfluenza Virus 4 Not Detected (Not Detect); Respiratory Syncytial Virus Not Detected (Not Detect); SARS- CoV-2 Not Detected (Not Detecte)
== END ==
LOC: LAB 16:35
PROVIDERS: PCP Internal Medicine; Visit Provider Nurse Practitioner Family
DX: R05.9 Cough, unspecified (principal)
CPT/HCPCS: 87633